=== PATIENT | male | born 1965 | race Caucasian/White ===

== ENCOUNTER 2020-04-05 00:04 | Inpatient (IN) | payer OTHER ==
--- OUTSIDE RECORDS SUMMARY | 2020-04-05 00:07 | XMS REPORT | Clinical Summary ---
:1965 Author Organization [facility] Address [address] [place] [address] Care Team Providers Name Role Phone Patricio Trevizo MD Primary Care Provider Allergies No Known Allergies Medications Medication Sig Dispensed Refills Start Date End Date Status gabapentin (NEURONTIN) Take 600 mg by 0 Active 600 mg tablet mouth 4 (four) times a day. HYDROcodone-acetaminop Take 1 tablet by 0 Active hen (NORCO) 10-325 mg mouth 2 (two) per tablet times a day. Active Problems Problem Noted Date Smoker 03/24/2019 Acute cholecystitis 02/28/2019 Obesity 07/15/2018 Postthrombotic syndrome, left iliac vein stent occlusi on 2018 07/14/2018 Last Assessment & Plan: N. Plan: Bilateral DVT study. I recommended proper skin care, weight loss, daily compression stockings, and smoking cessation. Referral given for weight loss management. Review previous CT and venograms. Acute tubular necrosis 04/23/2017 Retroperitoneal hematoma 04/23/2017 Bilateral pneumonia 04/23/2017 Normocytic normochromic anemia 04/23/2017 Hyponatremia 04/23/2017 Left lower quadrant pain 04/02/2017 Acute deep vein thrombosis (DVT) of distal vein of bot h lower extremities 03/29/2017 Overview: Added automatically from request for francisco soniya [id number] Chronic back pain Hyperlipidemia Hypertension Family History Medical History Relation Name Comments Stroke Father Diabetes Mother Stroke Mother Relation Name Status Comments Father Mother Social History Tobacco Use Types Packs/Day Years Used Date Current Every Day Smoker Cigarettes 1 30 Smokeless Tobacco: Former User Tobacco Cessation: Ready to Quit: No; Co unseling Given: Yes Alcohol Use Drinks/Week oz/Week Comments Yes 2-3 times per mo nth Sex Assigned at Date Recorded Not on file Job Start Date Occupation Industry Not on file Not on file Not on file Travel History Travel Start Travel End No recent travel history available. Last Filed Vital Signs Not on file Plan of Treatment Health Maintenance Due Date Last Done Comments COLONOSCOPY SCREENING 2017 SHINGLES VACCINES (#1) 2017 INFLUENZA VACCINE 06/18/2020 Implants Implanted Type Area Microcomputer Technician Device Shelf Model / Identifier Expiration Serial / Date Lot 16 F Sheath - [id number] Cardiac Pacing N/A: N/A MEDTR[employer] [id number] / Implanted: Qty: 1 on 04/02/2017 by Brett Lee MD at [facility] Leads or CARDIOVASCULAR / Electrodes or Accessories Matrix Cormatrix Ecm 7x15cm Pericrdl Rpr Xcell Strl - [id number] Human Tissue N/A: Vein CORMATRIX 12/18/2017 [id number] / Implanted: Qty: 1 on 04/03/2017 by Tomas Sanchez MD at [facility] Implants CARDIOVASCULAR / [id number] 24mm (Prox) X 24mm (Distal) X 82mm Total Covered, Endurant Ii Aaa Iliac Extension Stent Graft - [id number] - [id number] GRAFTS N/A: N/A MEDTRON IC 11/26/2018 [id number] / Implanted: Qty: 1 on 04/02/2017 by Brett Lee MD at [facility] CARDIOVASCULAR [id number] / [id number] Catheter Dialysis Glidepath [id number] Symmetric Tip - [id number] Implantable N/A: N/A BARD PERIPHERAL [id number] / Implanted: 04/23/2017 at [facility] (Quantity not on file) In fusion Ports VASCULAR / or Accessories Pump Infsn Synchromed Ii W/ Fltr Sut Loo p Prgrmbl Rsvr 20ml - [id number] - [id number] Neurosurgical Left: [employer] 03/15/2020 [id number] / Implanted: Qty: 1 on 11/03/2018 by Gee Hamilton M D at [facility] Implants Abdomen, NEUROMODULATION [id number] / Middle [id number] Quadrant/N on Specific 28mm (Prox) X 28mm (Distal) X 82mm Total Covered, Endurant Ii Aaa Iliac Extension Stent Graft Stent Graft N/A: N/A [employer] 06/04/20 18 [id number] / Implanted: Qty: 1 on 04/02/2017 by Brett Lee MD at [facility] [id number] / [id number] Device Endovasclr Intlgnt Drug Delv Cath 5.2fr [id number] - Lo [id number] Surgical N/A: N/A EKOS GOLD 12/05/2019 [id number] / Implanted: 04/01/2017 at [facility] (Quantity not on file) Implants ; [id number] / Expanders; [id number] Extenders; Surgical Wires Device Endovasclr Intlgnt Drug Delv Cath 5.2fr [id number] - Lo [id number] Surgical N/A: N/A EKOS GOLD 10/30/2019 [id number] / Implanted: 04/01/2017 at [facility] (Quantity not on file) Implants ; [id number] / Expanders; [id number] Extenders; Surgical Wires Patch Biosurg Selnt Fibrin Absrbl 9.5x4.8cm Tachosil - [id number] Surgical N/A: Vein [employer] 01/24/2018 [id number] / Implanted: Qty: 2 on 04/02/2017 by Tomas Sanchez MD at [facility] Implants; / Expanders; [id number] Extenders; Surgical Wires Patch Selnt Fibrin Absrbl 4.8x4.8cm Tachosil - [id number] Surgica l N/A: N/A [employer] 01/02/2018 [id number] / Implanted: 04/03/2017 at [facility] (Quantity not on file) Implants ; / Expanders; [id number] Extenders; Surgical Wires Patch Selnt Fibrin Absrbl 4.8x4.8cm Tachosil - [id number] Surgica l N/A: N/A [employer] 01/02/2018 [id number] / Implanted: 04/03/2017 at [facility] (Quantity not on file) Implants ; / Expanders; [id number] Extenders; Surgical Wires Drain Wnd Chnl 19fr 1/4in Rnd Hbls Fl-Flut W/ /4in Trocar - [id number] Surgical N/A: N/A KATI AND 05/17/2020 [id number] / Implanted: 04/03/2017 at [facility] (Quantity not on file) Im plants; [employer] / Expanders; CARE [id number] Extenders; Surgical Wires Drain Wnd Chnl 19fr 1/4in Rnd Hbls Fl-Flut W/ /4in Trocar - [id number] Surgical N/A: N/A KATI AND 05/17/2020 [id number] / Implanted: 04/03/2017 at [facility] (Quantity not on file) Im plants; [employer] / Expanders; CARE [id number] Extenders; Surgical Wires Kit Selnt Fibrin Humn [facility] Surgy 5ml Evicel - [id number] Surgica l N/A: N/A ETHICON - 09/17/2018 [id number] / Implanted: Qty: 1 on 07/04/2017 by Brett Lee MD at [facility] Implants; / Expanders; [id number] Extenders; Surgical Wires Drain Wnd Chnl 19fr 1/4in Rnd Hbls Fl-Flut W/ /4in Trocar - [id number] Surgical N/A: N/A KATI AND 12/18/2020 [id number] / Implanted: Qty: 1 on 07/04/2017 by Brett Lee MD at [facility] Implants; [employer] / Expanders; CARE [id number] Extenders; Surgical Wires Results Not on fileafter 04/05/2019 Insurance Payer Benefit Plan / Group Subscriber ID Effective Phone Addre ss Type Dates [facility] xxxxxxxxx 2018-Pres HMO/PPO CHOICE/CHOICE + ent MEDICARE MEDICARE PART A xxxxxxxxxxx 2010-[place] , [place] Medicare nt Advance Directives For more information, please contact: [phone] Type Date Recorded Patient Nursing Consultant Explanati on Advance Directives, Living 10/31/2018 7:07 AM Will and Medical Power of Field Observer
[2020-04-05] MEDS ORDERED: MORPHINE 4 MG/ML SYR ONE (01:27)
[2020-04-05] MEDS ORDERED: ONDANSETRON 4 MG/2 ML VIAL ONE ×2 (01:27→11:55)
[2020-04-05 01:52] LABS: Absolute Lymphocytes (CBC) 0.5 K/uL (0.7-4.9); Basophils % 0.3 % (0-1.3); Hematocrit 44.8 % (39.6-49.0); Lymphocytes % 4.5 % (15.3-44.8); MPV 10.9 fL (7.6-11.3); RBC Red Blood Cell Count 4.76 M/uL (4.33-5.43)
[2020-04-05 02:07] LABS: Albumin 3.4 g/dL (3.4-5.0); Bilirubin Direct 0.5 mg/dL (0-0.2); Bilirubin Total 1.4 mg/dL (0.2-1.0); Potassium 4.1 mmol/L (3.5-5.1); Protein, Total 7.5 g/dL (6.4-8.2)
[2020-04-05 03:15] LABS: Blood Morphology Comment NOT SEEN (NOT SEEN); Platelet Estimate ADEQ
--- NOTE | 2020-04-05 03:46 | EDPHYS ---
Physician Documentation [facility] Name: Wali Lang Age: 55 yrs Sex: Male : 1965 Arrival Date: 04/05/2020 Time: 00:07 Bed 7 Private MD: ED Physician Mariano Hutchison HPI: 04/05 01:21 This 55 yrs old Male presents to ER via Ambulatory with complaints of Side tw4 Pain. 01:21 The patient presents with abdominal pain in the right upper quadrant. Onset: The tw4 symptoms/episode began/occurred today. The symptoms do not radiate. Associated signs and symptoms: none. The symptoms are described as dull. Modifying factors: The symptoms are alleviated by nothing, the symptoms are aggravated by nothing. Severity of pain: At its worst the pain was moderate in the emergency department the pain is unchanged. The patient has not experienced similar symptoms in the past. Historical: - Allergies: 00:15 No Known Allergies; sg - PMHx: 00:15 Hypertension; sg - PSHx: 00:15 back surgery; sg - Immunization history:: Adult Immunizations up to date. - Social history:: Smoking status: unknown. ROS: 01:21 Constitutional: Negative for fever, chills, and weight loss, Eyes: Negative for injury, tw4 pain, redness, and discharge, Cardiovascular: Negative for chest pain, palpitations, and edema, Respiratory: Negative for shortness of breath, cough, wheezing, and pleuritic chest pain, Back: Negative for injury and pain, MS/Extremity: Negative for injury and deformity, Skin: Negative for injury, rash, and discoloration, Neuro: Negative for headache, weakness, numbness, tingling, and seizure. 01:21 Abdomen/GI: Positive for abdominal pain, abdominal distension, Negative for nausea and vomiting, nausea, vomiting, and diarrhea, nausea, vomiting, diarrhea. Exam: 01:21 Constitutional: This is a well developed, well nourished patient who is awake, alert, tw4 and in no acute distress. Eyes: Pupils equal round and reactive to light, extra-ocular motions intact. Lids and lashes normal. Conjunctiva and sclera are non-icteric and not injected. Cornea within normal limits. Periorbital areas with no swelling, redness, or edema. Chest/axilla: Normal chest wall appearance and motion. Nontender with no deformity. No lesions are appreciated. Cardiovascular: Regular rate and rhythm with a normal S1 and S2. No gallops, murmurs, or rubs. Normal PMI, no JVD. No pulse deficits. Respiratory: Lungs have equal breath sounds bilaterally, clear to auscultation and percussion. No rales, rhonchi or wheezes noted. No increased work of breathing, no retractions or nasal flaring. Back: No spinal tenderness. No costovertebral tenderness. Full range of motion. MS/ Extremity: Pulses equal, no cyanosis. Neurovascular intact. Full, normal range of motion. Neuro: Awake and alert, GCS 15, oriented to person, place, time, and situation. Cranial nerves II-XII grossly intact. Motor strength 5/5 in all extremities. Sensory grossly intact. Cerebellar exam normal. Normal gait. 01:21 Abdomen/GI: Inspection: abdomen appears normal, Bowel sounds: normal, Palpation: moderate abdominal tenderness, in all quadrants. Vital Signs: 00:51 BP 127 / 77; Pulse 104; Resp 20; Temp 99.2(TE); Pulse Ox 94% on R/A; Pain 10/10; oe 01:30 BP 137 / 71; Pulse 102; Resp 18; Pulse Ox 96% on R/A; rv 03:00 BP 102 / 59; Pulse 93; Resp 16; Pulse Ox 96% on R/A; rv 04:00 BP 139 / 86; Pulse 92; Resp 16; Temp 99; Pulse Ox 97% on R/A; rv MDM: 01:21 Data reviewed: vital signs, nurses notes. Data interpreted: Pulse oximetry: tw4 Interpretation: normal. 03:41 Patient medically screened. tw4 03:42 Differential diagnosis: appendicitis, bowel obstruction, pancreatitis, Perf. Duodenal tw4 Ulcer, Perf. Gastric Ulcer, Peritonitis. Data reviewed: lab test result(s), CBC, hepatic panel, radiologic studies, CT scan. Test interpretation: by ED physician or midlevel provider: not applicable. Counseling: I had a detailed discussion with the patient and/or guardian regarding: the historical points, exam findings, and any diagnostic results supporting the discharge/admit diagnosis, lab results, radiology results. Medication response: morphine markedly relieved the patient's pain. Symptoms have improved. Response to treatment: and as a result, I will admit patient, administer antibiotics ZOSYN. Physician consultation: Charlie Argueta MD was called at 03:40, was contacted at 03:40, regarding admission, to the medical/surgical unit. to the operating room, patient's condition, and will see patient would like medications started, ZOSYN. Admission orders: after a detailed discussion of the patient's condition and case, the admit orders are written by me. 04/05 00:49 Order name: Basic Metabolic Panel [facility] 04/05 00:49 Order name: CBC with Diff; Complete Time: 03:38 [facility] 04/05 03:38 Interpretation: WBC 11.2; LYMA 0.5; NEUT A 10.2; LYM% 4.5; ROSS% 90.9. [facility] 04/05 00:49 Order name: Hepatic Function; Complete Time: 03:38 [facility] 04/05 03:39 Interpretation: Normal except: A/G 0.8; GLOB 4.1; BILID 0.5; BILIT 1.4. [facility] 04/05 00:49 Order name: Lipase; Complete Time: 03:38 [facility] 04/05 03:40 Interpretation: Within normal limits: LIP 101. [facility] 04/05 00:50 Order name: Basic Metabolic Panel; Complete Time: 03:38 [facility] 04/05 03:39 Interpretation: Normal except: GFR 67; BUN 19; GLUC 136. [facility] 04/05 02:00 Order name: Manual Differential; Complete Time: 03:38 [facility] 04/05 03:40 Interpretation: Normal except: SEGS 84; BANDS [F] 7; LYM 5. [facility] 04/05 00:58 Order name: CT Abd/Pelvis - IV Contrast Only [facility] 04/05 03:50 Order name: CONS Pharmacy Consult [facility] 04/05 03:50 Order name: NPO [facility] 04/05 00:49 Order name: IV Saline Lock; Complete Time: 01:30 [facility] 04/05 00:49 Order name: Labs collected and sent; Complete Time: 01:31 tw4 Administered Medications: 01:30 Drug: morphine 4 mg Route: IVP; Site: left forearm; rv 04:32 Follow up: Response: No adverse reaction rv 04:32 Follow up: Response: RASS: Alert and Calm (0) rv 01:30 Drug: Zofran (Ondansetron) 4 mg Route: IVP; Site: left forearm; rv 04:32 Follow up: Response: No adverse reaction rv 04:24 Drug: Zosyn 3.375 grams Route: IVPB; Infused Over: 60 mins; Site: left forearm; rv 05:08 Follow up: IV Status: Completed infusion; IV Intake: 100ml rv 04:24 Drug: fentaNYL (PF) 50 mcg {Note: RASS 0.} Route: IVP; Site: right forearm; rv 05:08 Follow up: Response: RASS: Alert and Calm (0) rv Disposition: 04/05/20 03:45 Hospitalization ordered by Jak Rojas for Inpatient Admission. Preliminary diagnosis is ACUTE CORONARY SYNDROME. - Bed requested for Telemetry/MedSurg (Inpatient). - Status is Inpatient Admission. jb4 - Condition is Stable. - Problem is new. - Symptoms are unchanged. Signatures: Dispatcher [employer] EDMS Raghav Leung RN RN Mayra Ag RN RN Ben Goodman RN RN [facility] Mariano Hutchison MD MD [facility] Chester Fraire RN RN rv Corrections: (The following items were deleted from the chart) 04:15 03:45 Hospitalization Ordered by Jak Rojas MD for Inpatient Admission. Preliminary cg diagnosis is ACUTE CORONARY SYNDROME. Bed requested for Telemetry/MedSurg (Inpatient). Status is Inpatient Admission. Condition is Stable. Problem is new. Symptoms are unchanged. tw4 04:56 04:15 04/05/2020 03:45 Hospitalization Ordered by Jak Rojas MD for Inpatient jb4 Admission. Preliminary diagnosis is ACUTE CORONARY SYNDROME. Bed requested for Telemetry/MedSurg (Inpatient). Status is Inpatient Admission. Condition is Stable. Problem is new. Symptoms are unchanged. cg
--- NOTE | 2020-04-05 03:46 | ER ---
Nurse's Notes [facility] Name: Wali Lang Age: 55 yrs Sex: Male : 1965 Arrival Date: 04/05/2020 Time: 00:07 Bed 7 Private MD: Diagnosis: ACUTE CORONARY SYNDROME Presentation: 04/05 00:15 Acuity: FERNY 3 sg 00:15 Chief complaint: Patient states: I have this really bad pain in the right side of my sg abd and right side of my chest, its not been getting any better, the last time this happened was about three years ago, it was internal bleeding they had removed about 42 pints of blood from my stomach area. Coronavirus screen: Proceed with normal triage. Ebola Screen: Patient negative for fever greater than or equal to 101.5 degrees Fahrenheit, and additional compatible Ebola Virus Disease symptoms Patient denies exposure to infectious person. Patient denies travel to an Ebola-affected area in the 21 days before illness onset. No symptoms or risks identified at this time. Initial Sepsis Screen: Does the patient meet any 2 criteria? HR > 90 bpm. Does the patient have a suspected source of infection? Yes: Acute abdominal pain. Risk Assessment: Do you want to hurt yourself or someone else? Patient reports no desire to harm self or others. Onset of symptoms was April 02, 2020. Care prior to arrival: None. Transition of care: patient was not received from another setting of care. 00:15 Method Of Arrival: Ambulatory sg Historical: - Allergies: 00:15 No Known Allergies; sg - PMHx: 00:15 Hypertension; sg - PSHx: 00:15 back surgery; sg - Immunization history:: Adult Immunizations up to date. - Social history:: Smoking status: unknown. Screenin:39 Abuse screen: Denies threats or abuse. Denies injuries from another. Nutritional rv screening: No deficits noted. Tuberculosis screening: No symptoms or risk factors identified. Fall Risk None identified. Assessment: 01:31 General: Appears uncomfortable, Behavior is calm, cooperative. Pain:. rv 01:36 Pain: Complains of pain in RIGHT SIDE PAIN. Neuro: Level of Consciousness is awake, rv alert, obeys commands, Oriented to person, place, time, situation. Cardiovascular: Patient's skin is warm and dry. Respiratory: Airway is patent Breath sounds are clear bilaterally. Derm: Skin with poor turgor. 01:55 Reassessment: Patient and/or family updated on plan of care and expected duration. Pain rv level reassessed. Patient is alert, oriented x 3, equal unlabored respirations, skin warm/dry/pink. Vital Signs: 00:51 BP 127 / 77; Pulse 104; Resp 20; Temp 99.2(TE); Pulse Ox 94% on R/A; Pain 10/10; oe 01:30 BP 137 / 71; Pulse 102; Resp 18; Pulse Ox 96% on R/A; rv 03:00 BP 102 / 59; Pulse 93; Resp 16; Pulse Ox 96% on R/A; rv 04:00 BP 139 / 86; Pulse 92; Resp 16; Temp 99; Pulse Ox 97% on R/A; rv ED Course: 00:07 Patient arrived in ED. cl3 00:15 Triage completed. sg 00:15 Arm band placed on. sg 00:47 Mariano Hutchison MD is Attending Physician. tw4 01:06 Chester Fraire RN is Primary Nurse. rv 01:15 Inserted saline lock: 20 gauge in left forearm, using aseptic technique. rv 01:39 Patient has correct armband on for positive identification. Pulse ox on. NIBP on. rv 02:45 CT Abd/Pelvis - IV Contrast Only In Process Unspecified. EDMS 03:44 Jak Rojas MD is Hospitalizing Provider. tw4 04:31 No provider procedures requiring assistance completed. IV is patent, with fluids rv infusing freely, with good blood return, Patient admitted, IV remains in place. Administered Medications: 01:30 Drug: morphine 4 mg Route: IVP; Site: left forearm; rv 04:32 Follow up: Response: No adverse reaction rv 04:32 Follow up: Response: RASS: Alert and Calm (0) rv 01:30 Drug: Zofran (Ondansetron) 4 mg Route: IVP; Site: left forearm; rv 04:32 Follow up: Response: No adverse reaction rv 04:24 Drug: Zosyn 3.375 grams Route: IVPB; Infused Over: 60 mins; Site: left forearm; rv 05:08 Follow up: IV Status: Completed infusion; IV Intake: 100ml rv 04:24 Drug: fentaNYL (PF) 50 mcg {Note: RASS 0.} Route: IVP; Site: right forearm; rv 05:08 Follow up: Response: RASS: Alert and Calm (0) rv Intake: 05:08 IV: 100ml; Total: 100ml. rv Outcome: 03:45 Decision to Hospitalize by Provider. tw4 04:56 Patient left the ED. jb4 05:09 Admitted to Med/surg accompanied by nurse, via wheelchair, room 228, with chart, Report rv called to LOLIS DANIELS 05:09 Condition: good 05:09 Instructed on the need for admit, Demonstrated understanding of instructions. Signatures: Dispatcher [employer] EDMS Raghav Leung RN RN Ben Goodman RN RN jb4 Hardeep Brown Terrence, MD MD tw4 Chetser Fraire RN RN rv Sohan Foley cl3
[2020-04-05] MEDS ORDERED: D5.45NS W/KCL 20MEQ 1,000 ML IV ONE (04:02)
[2020-04-05] MEDS ORDERED: PIPER/TAZO/NS 3.375gm 3.375 GM/100 ML BAG ONE (04:21)
[2020-04-05] MEDS ORDERED: FENTANYL CITR 100 MCG/2 ML ONE ×3 (04:27→14:05)
[2020-04-05 05:49] VITALS: BMI 43.2
[2020-04-05] MEDS: MORPHINE 2 MG/ML SYR IV PRN ×3 (06:46→23:50)
[2020-04-05] MEDS: D5.45NS W/KCL 20MEQ 20 MEQ/1,000 ML BAG IV SCH ×2 (06:47→17:02)
[2020-04-05] MEDS: ACETAMINOPHEN 500 MG TAB PO PRN (08:47)
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
[2020-04-05] MEDS: PIPER/TAZO/NS 3.375gm 3.375 GM/100 ML BAG IVPB SCH ×2 (10:16→17:03)
--- NOTE | 2020-04-05 10:49 | RAD REPORT ---
EXAM DESCRIPTION: CT - Abdomen Pelvis W Contrast - 04/05/2020 7:07 am COMPARISON: None CLINICAL HISTORY: Abdominal pain TECHNIQUE: Multiple helical axial images were obtained through the abdomen and pelvis using intraven ous contrast. Coronal and sagittal reformatted images were obtained. All CT scans at this facility use dose modulation, iterative reconstruction, and/or weight-based dosi ng when appropriate to reduce radiation dose to as low as reasonably achievable. FINDINGS: Lung bases: Mild dependent atelectasis is noted. Liver: There is low-attenuation compatible with fatty changes. Liver appears enlarged. Gallbladder/biliary: Cholecystectomy changes are present. No significant biliary ductal dilatation. Pancreas: Unremarkable. No evidence of ductal enlargement. Spleen: Appears mildly enlarged. Adrenals: Unremarkable. Kidneys and ureters: No evidence of hydronephrosis. Normal enhancement. Bladder: Unremarkable. Pelvic organs: Unremarkable. Bowel: Appendix is enlarged measuring up to 1.6 mm in width with mildly thickened wall and intralumin al calcifications compatible with acute appendicitis. There are a few tiny foci of air near the enlar ged appendix with extensive periappendiceal inflammatory changes suggestive of appendiceal perforatio n. No evidence of bowel obstruction. Vasculature: IVC filter is present. Left iliac vein stent noted. Several small varices in the retrope ritoneum noted. Peritoneum: Trace free fluid near the appendix noted. Lymph nodes: Unremarkable. Soft tissues: There is an area of subcutaneous skin thickening in the left inguinal region which may be related to prior surgery. Neurostimulator device within the right lower abdominal wall subcutaneou s tissues demonstrated with lead entering the lumbar spinal canal. Bones: There is a serpiginous area of sclerosis involving the right femoral head suggestive of avascu lar necrosis. Degenerative changes of the lumbar spine are present. 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 IMPRESSION: 1. Findings compatible with acute appendicitis. Few tiny foci of extraluminal air and ex tensive inflammation near the appendix suggestive of appendiceal perforation. 2. 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 3. Hepatomegaly and hepatic steatosis. THIS REPORT CONTAINS FINDINGS THAT MAY BE CRITICAL TO PATIENT CARE: The findings were verbally discu ssed via telephone conference with Dr. Hutchison by Dr. Becerra at 0331 hours central time on April 05, 2020. The results were acknowledged and understood. Electronically signed by: Talon Becerra MD 04/05/2020 3:40 AM CDT Due to temporary technical issues with the PACS/Fluency reporting system, reports are being signed by the in house radiologist as a courtesy to ensure prompt reporting. The interpreting radiologist is f ully responsible for the content of the report.
[2020-04-05] MEDS ORDERED: CELECOXIB 100 MG CAPSULE PO ONE (11:10)
[2020-04-05] MEDS ORDERED: Ringers Lactate 1,000 ML IV ONE (11:37)
[2020-04-05] MEDS ORDERED: propofoL 200 MG/20 ML VIAL IV ONE (11:54)
[2020-04-05] MEDS ORDERED: KETOROLAC 30 MG/ML INJ ONE (11:55)
[2020-04-05] MEDS ORDERED: MIDAZOLAM HCL 2 MG/2 ML INJ ONE (11:55)
[2020-04-05] MEDS ORDERED: LIDOCAINE 2% MPF 5 ML VIAL ONE (11:55)
[2020-04-05] MEDS ORDERED: ROCURONIUM 50 MG/5 ML VIAL IV ONE (11:58)
[2020-04-05] MEDS ORDERED: SUCCINYLCHOLINE 20 MG/ML (10 ML) IV ONE (12:06)
[2020-04-05] MEDS: BUPIVACA 0.25%/EPI 0.0005%/PF 30 ML VIAL ONE ×2 (12:24→12:53)
[2020-04-05] MEDS ORDERED: dexAMETHasone 4 MG/ML VIAL ONE (14:02)
[2020-04-05] MEDS ORDERED: NEOSTIGMINE 1 MG/ML -5 ML ONE (14:02)
[2020-04-05] MEDS ORDERED: GLYCOPYRROLATE 0.2 MG/ML SYR ONE (14:02)
--- NOTE | 2020-04-05 14:12 | P.OP ---
Preoperative diagnosis: Perforated Appendicitis Postoperative diagnosis: Perforated Appendicitis Primary procedure: Laparoscopic Appendectomy Anesthesia: GETA + Local Estimated blood loss: <10cc Specimen: Appendix, inflammed epiploic appendage Findings: gross perforation, feculent peritonitis, necrosis to proximal appendix Complications: None Drain(s): Other (mm flat BRITTNI) Implants: Surgicel hemostatic matrix Transferred to: Recovery Room Condition: Good
[2020-04-05] MEDS ORDERED: HYDROCODONE/APAP 7.5/325 MG TAB PO PRN (14:39)
[2020-04-05] MEDS: INSULIN -REGULAR HUMAN 50 UNIT/0.5 ML ML SQ SCH ×2 (16:30→20:38)
[2020-04-05] MEDS: GABAPENTIN 300 MG CAP PO SCH (20:37)
--- NOTE | 2020-04-05 20:39 | OP ---
Date of Procedure: 04/05/2020 Surgeon: Charlie Argueta MD, Preoperative Diagnosis: Perforated appendicitis. Postoperative Diagnosis: Perforated appendicitis. Primary Procedure: Laparoscopic appendectomy. Secondary Procedure: Laparoscopic adhesiolysis. Anesthesia: General endotracheal. Specimens: Appendix and an inflamed epiploic appendage. Estimated Blood Loss: Less than 10 mL. Findings: 1.Gross perforation at the proximal aspect of the appendix near the confluence of the cecum. 2.Feculent peritonitis in the right upper and right lower quadrant with pus and stool material consi stent with ruptured appendicitis and spillage of appendicolith and fecal material. 3.Patient had increased oozing from all cut surfaces as he is currently on anticoagulation due to hi s previous vascular intervention. Complications: None. Drains: A 7 mm flat BRITTNI drain placed in the right pericolic gutter. Implants: Surgicel hemostatic matrix in the right lower quadrant. Patient transferred to [facility] r o in good condition. Procedure In Detail: After informed consent was obtained, patient was brought to the operating room, prepped and draped in the usual sterile fashion. After adequate anesthesia, a supraumbilical area w as anesthetized with 0.25% Marcaine, sharply incised a 5 mm trocar was introduced in the abdomen with out evidence of complication. Insufflation was obtained to 15 mmHg at this time. There was no injur y upon entry to the abdomen to any vital structures. There were significant intraabdominal omental a dhesions to the anterior surface of the abdominal wall, however, no vital structures were entered dur ing the entry of the periumbilical trocar site. Two additional trocars were chosen, one in the right lower quadrant, 1 in the suprapubic position. These were both similar, anesthetized sharply incised , and 5 mm trocars were introduced in the abdomen without evidence of complication under direct visua lization, avoiding the patient's morphine pain pump in the right lower quadrant. The umbilical troca r was then up-sized to a 12 mm under direct visualization without complication. The adhesions in the periumbilical area were taken down using LigaSure hemostatic device without evidence of complication . Patient was then positioned head down, right side up position and ratchet grasper used to follow t he patient's tenia coli down to the confluence and noted to find that there was evidence of gross fec ulent peritonitis in the right lower quadrant along with purulent fluid evident in this area consiste nt with abscess. It extended from the right pericolic gutter all the way up to the perihepatic space . This was suctioned out in its entirety, irrigated and suctioned out once again until completely cl ear. Attention was then turned back to the appendix which was quite difficult to discern at this poi nt. Careful dissection following the tenia from the base of the cecum appreciated that the appendix curled upward in a cranial direction on the lateral aspect of the colon in close adherence to the col on and structures. In addition there were significant inflammatory changes requiring careful dissect ion along the pericolic gutter to evacuate all infected fluids. After this was performed, a mesoappe ndiceal window was created and an Endo MABEL 35 blue load was fired across the confluence of the append iceal base with the cecum. The tissue was approximated at this point. The mesoappendix was taken do wn using the LigaSure device and the appendix was then placed in the EndoCatch bag, removed the umbil ical trocar, and sent off for pathologic examination. The area was copiously irrigated multiple time s and completely clear. Some additional hemostatic maneuvers were required near the mesoappendix as it was grossly inflamed and quite friable. During the handling there was some continued oozing from this area. The LigaSure was used to control this predominantly and the area was copiously irrigated. When no additional bleeding was encountered, a piece of Surgicel was placed into this area as the p atient has a preexisting condition requiring anticoagulation and he currently took his anticoagulatio n as of today. Therefore, I left the piece of Surgicel intact in the right lower quadrant at the mes oappendix location. I then brought in a 7 mm flat BRITTNI drain as we had no 10 mm drains available. Thi s is the largest flat BRITTNI we had placed. I placed in the right paracolic gutter along the surgical ma rgin. I irrigated the area copiously multiple times and completely clear, irrigated the pelvis and s uctioned it out dry. No additional fluid collections were encountered. The drain was then brought o ut through the right lower quadrant incision through the trocar and it was secured to the skin after removing the trocar. The patient was then positioned in neutral position. Under desufflation I obse rved no additional bleeding in the right lower quadrant. After placing the patient down to 5 mm of i ntraabdominal pressure, and inspecting the right lower quadrant, there was no additional bleeding nicole reciated and no leakage from the staple line. I then turned attention back to the umbilical site. I removed the umbilical trocar and closed the umbilical trocar site with a Gopal-Eladia suture pass er in an interrupted fashion with several sutures with good approximation of tissues. The abdomen wa s completely desufflated under direct visualization without evidence of complication. All trocars we re removed. All skin incisions were copiously irrigated and closed with interrupted sraa. Brennen fuentes tolerated the procedure well without evidence of complication and was transferred to PACU in good c ondition. All counts were correct at the end of the case. FRANSICO/LAYLA Voice ID: [id number] Report ID: [id number]
[2020-04-05] MEDS ORDERED: HOME MED 1 EA UNK (Gabapentin [Gabapentin] 1 TAB) PO SCH (21:00)
[2020-04-06] MEDS: PIPER/TAZO/NS 3.375gm 3.375 GM/100 ML BAG IVPB SCH ×3 (00:47→16:18)
[2020-04-06] MEDS: D5.45NS W/KCL 20MEQ 20 MEQ/1,000 ML BAG IV SCH ×2 (00:47→07:00)
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
[2020-04-06 04:44] LABS: Absolute Lymphocytes (CBC) 0.6 K/uL (0.7-4.9); Basophils % 0.9 % (0-1.3); Hematocrit 41.7 % (39.6-49.0); Lymphocytes % 4.7 % (15.3-44.8); MPV 10.3 fL (7.6-11.3); RBC Red Blood Cell Count 4.41 M/uL (4.33-5.43)
[2020-04-06 04:55] LABS: Magnesium 2.3 mg/dL (1.8-2.4); Phosphorus 1.9 mg/dL (2.5-4.9); Potassium 4.5 mmol/L (3.5-5.1)
[2020-04-06] MEDS: INSULIN -REGULAR HUMAN 50 UNIT/0.5 ML ML SQ SCH ×4 (07:30→21:00)
[2020-04-06] MEDS ORDERED: RIVAROXABAN 20 MG TABLET PO SCH (09:00)
[2020-04-06] MEDS: NA CHLORIDE 0.9% 1,000 ML IV SCH ×2 (09:30→22:37)
[2020-04-06] MEDS: GABAPENTIN 300 MG CAP PO SCH ×3 (09:34→20:26)
[2020-04-06] MEDS: ACETAMINOPHEN 500 MG TAB PO PRN (10:41)
[2020-04-06] MEDS: POTASS/SODIUM PHOSPHATE 1 PKT POWD.PACK PO SCH ×3 (12:49→15:33)
--- NOTE | 2020-04-06 15:28 | P.PN ---
Subjective Date of Service: 04/06/20 Primary Care Provider: none, Multiple specialist at [facility] Chief Complaint: Right lower abdominal pain Subjective: Improving, Doing well (Patient has done well post operatively.) Physical Examination - Vital Signs Temperature: 98.5 F Blood Pressure: 123/60 Pulse: 73 Respirations: 20 Pulse Ox (%): 96 - Physical Exam General: Alert, In no apparent distress, Oriented x3, Cooperative HEENT: Atraumatic Neck: Supple Respiratory: Clear to auscultation bilaterally, Normal air movement Cardiovascular: Normal pulses, Regular rate/rhythm Gastrointestinal: Normal bowel sounds, Soft and benign, Other (No significant pain. Postsurgical changes noted.) Neurological: Normal speech, Normal strength at 5/5 x4 extr, Normal tone, Normal affect - Studies Medications List Reviewed: Yes Assessment & Plan Discharge Plan: Home Plan to discharge in: 48 Hours Physician Review Additional Text: Impression: Right lower quadrant abdominal pain secondary to acute appendicitis with perforation status post laparoscopic appendectomy History of DVT/pulmonary embolism on chronic anti coagulation therapy with IVC filter in place Chronic pain with significant degenerative disc and joint disease with pain pump Obesity, BMI 43.3 Plan: Right lower quadrant abdominal pain secondary to acute appendicitis with per foration status post laparoscopic appendectomy: Patient did well post operatively. Case discussed with surgery. Will continue incentive spirometer. Encourage ambulation. Will start with clear liquids and adjust accordingly. Anticipate discharge in the next 48 hr with clinical improvement. Continue to follow along with surgery. History of DVT/pulmonary embolism on chronic anti coagulation therapy with IVC filter in place: Overall stable. Will restart Xarelto today. Chronic pain with significant degenerative disc and joint disease with pain pump: Continue with pain medication. Obesity, BMI 43.3: Will address lifestyle modification education. Time Spent Managing Pts Care (In Minutes): 55
--- NOTE | 2020-04-06 16:20 | P.PN ---
Subjective Date of Service: 04/06/20 Primary Care Provider: none, Multiple specialist at [facility] Chief Complaint: Right lower abdominal pain Subjective: Improving (Patient feels much better, tolerating clears, no bowel function.) Physical Examination - Vital Signs Temperature: 98.5 F Blood Pressure: 123/60 Pulse: 73 Respirations: 20 Pulse Ox (%): 96 - Physical Exam General: Alert, In no apparent distress, Cooperative HEENT: Mucous membr. moist/pink Respiratory: Diminished Cardiovascular: Regular rate/rhythm Gastrointestinal: Other (soft, mild appropriate TTP, ND, BRITTNI serosanguanous, incisions clean and dry) - Studies Medications List Reviewed: Yes Assessment And Plan - Current Problems (Diagnosis) (1) Acute perforated appendicitis Current Visit: Yes Status: Acute Plan: 55 year old man with perforated appendicitis s/p laparoscopic appendectomy on 04/06/2020 - pain well controlled with current regime - advance diet slowly - anticipate ileus - serial exams - monitor BRITTNI - Serial labs - leukocytosis improving - ambulate with assist - start anticoagulation today - incentive spirometry (2) Aneurysm artery, iliac common Current Visit: Yes Status: Acute (3) Pulmonary embolism on long-term anticoagulation therapy Current Visit: Yes Status: Acute (4) Deep venous thrombosis (DVT) of both peroneal veins Current Visit: Yes Status: Acute (5) Chronic pain Current Visit: Yes Status: Acute (6) Back pain Current Visit: Yes Status: Acute Physician Review Additional Text: Impression: Right lower quadrant abdominal pain secondary to acute appendicitis with perforation status post laparoscopic appendectomy History of DVT/pulmonary embolism on chronic anti coagulation therapy with IVC filter in place Chronic pain with significant degenerative disc and joint disease with pain pump Obesity, BMI 43.3 Plan: Right lower quadrant abdominal pain secondary to acute appendicitis with perforation status post laparoscopic appendectomy: Patient did well post operatively. Case discussed with surgery. Will continue incentive spirometer. Encourage ambulation. Will start with clear liquids and adjust accordingly. Anticipate discharge in the next 48 hr with clinical improvement. Continue to follow along with surgery. History of DVT/pulmonary embolism on chronic anti coagulation therapy with IVC filter in place: Overall stable. Will restart Xarelto today. Chronic pain with significant degenerative disc and joint disease with pain pump: Continue with pain medication. Obesity, BMI 43.3: Will address lifestyle modification education.
[2020-04-06] MEDS: ENOXAPARIN 40 MG/0.4 ML SQ SCH (18:42)
[2020-04-06] MEDS: NICOTINE 21 MG/PAT TD SCH (20:25)
[2020-04-07] MEDS: PIPER/TAZO/NS 3.375gm 3.375 GM/100 ML BAG IVPB SCH ×3 (00:58→16:25)
[2020-04-07 04:33] LABS: Absolute Lymphocytes (CBC) 0.9 K/uL (0.7-4.9); Basophils % 0.2 % (0-1.3); Hematocrit 38.4 % (39.6-49.0); Lymphocytes % 8.5 % (15.3-44.8); MPV 10.7 fL (7.6-11.3); RBC Red Blood Cell Count 4.13 M/uL (4.33-5.43)
[2020-04-07 04:49] LABS: Magnesium 2.1 mg/dL (1.8-2.4); Phosphorus 2.5 mg/dL (2.5-4.9); Potassium 4.1 mmol/L (3.5-5.1)
[2020-04-07] MEDS: NA CHLORIDE 0.9% 1,000 ML IV SCH ×2 (07:26→20:11)
[2020-04-07] MEDS: INSULIN -REGULAR HUMAN 50 UNIT/0.5 ML ML SQ SCH ×4 (07:30→21:00)
[2020-04-07] MEDS: GABAPENTIN 300 MG CAP PO SCH ×3 (09:03→20:10)
[2020-04-07] MEDS: ENOXAPARIN 40 MG/0.4 ML SQ SCH (09:03)
[2020-04-07] MEDS: NICOTINE 21 MG/PAT TD SCH (09:08)
--- NOTE | 2020-04-07 11:23 | P.PN ---
Subjective Date of Service: 04/07/20 Primary Care Provider: none, Multiple specialist at [facility] Chief Complaint: Right lower abdominal pain Subjective: Improving, Doing well (Patient denies any abdominal pain. No significant nausea vomiting. Patient tolerating GI soft diet.) Physical Examination - Vital Signs Temperature: 97.6 F Blood Pressure: 128/68 Pulse: 63 Respirations: 20 Pulse Ox (%): 97 - Physical Exam General: Alert, In no apparent distress, Oriented x3, Cooperative HEENT: Atraumatic Neck: Supple Respiratory: Clear to auscultation bilaterally, Normal air movement Cardiovascular: Normal pulses, Regular rate/rhythm Gastrointestinal: Normal bowel sounds, Soft and benign, Non-distended, No tenderness, No masses, No rebound, No guarding, Other (postsurgical changes noted) Musculoskeletal: No tenderness, No warmth Neurological: Normal speech, Normal strength at 5/5 x4 extr, Normal tone, Normal affect - Studies Medications List Reviewed: Yes Assessment & Plan Discharge Plan: Home Plan to discharge in: 48 Hours Physician Review Additional Text: Impression: Right lower quadrant abdominal pain secondary to acute appendicitis with perforation status post laparoscopic appendectomy History of DVT/pulmonary embolism on chronic anti coagulation therapy with IVC filter in place Chronic pain with significant degenerative disc and joint disease with pain pump Obesity, BMI 43.3 Plan: Right lower quadrant abdominal pain secondary to acute appendicitis with perforation status post laparoscopic appendectomy: Patient has done well post operatively. Patient tolerating GI soft diet. Encourage ambulation. Encourage incentive spirometer. Will discuss with surgery on discharge plan of care. If the patient continues to perform an do well, will consider discharge in the next 48 hr. History of DVT/pulmonary embolism on chronic anti coagulation therapy with IVC filter in place: Overall stable. Case discussed with surgery yesterday. Surgery wanted to hold off on restarting Xarelto. Therefore will continue with Lovenox 40 mg daily for DVT prophylaxis. Chronic pain with significant degenerative disc and joint disease with pain pump: Continue with pain medication. Obesity, BMI 43.3: Will address lifestyle modification education. Time Spent Managing Pts Care (In Minutes): 55
--- NOTE | 2020-04-07 15:19 | P.PN ---
Subjective Date of Service: 04/07/20 Primary Care Provider: none, Multiple specialist at [facility] Chief Complaint: Right lower abdominal pain Subjective: Improving (Patient pain much improved, ambulatory, tolerating diet, +BM) Physical Examination - Vital Signs Temperature: 98.8 F Blood Pressure: 115/74 Pulse: 79 Respirations: 20 Pulse Ox (%): 97 - Physical Exam General: Alert, In no apparent distress, Cooperative HEENT: Mucous membr. moist/pink Respiratory: Clear to auscultation bilaterally, Normal air movement Cardiovascular: Regular rate/rhythm Gastrointestinal: Other (soft, obese, incisions clean and dry, BRITTNI serosanguanous, no infection, appropriate TTP, sara in place) - Studies Medications List Reviewed: Yes Assessment And Plan - Current Problems (Diagnosis) (1) Acute perforated appendicitis Current Visit: Yes Status: Acute Plan: 55 year old man with perforated appendicitis s/p laparoscopic appendectomy on 04/06/2020 - pain well controlled with current regime - advance diet - serial exams - monitor BRITTNI - likely remove in AM - Serial labs - leukocytosis improving - ambulate with assist - start anticoagulation today - incentive spirometry - ok to transition to PO anticoagulation, - will nevin PETERSEN home in AM on antibiotic (2) Aneurysm artery, iliac common Current Visit: Yes Status: Acute (3) Pulmonary embolism on long-term anticoagulation therapy Current Visit: Yes Status: Acute (4) Deep venous thrombosis (DVT) of both peroneal veins Current Visit: Yes Status: Acute (5) Chronic pain Current Visit: Yes Status: Acute (6) Back pain Current Visit: Yes Status: Acute Physician Review Additional Text: Impression: Right lower quadrant abdominal pain secondary to acute appendicitis with perforation status post laparoscopic appendectomy History of DVT/pulmonary embolism on chronic anti coagulation therapy with IVC filter in place Chronic pain with significant degenerative disc and joint disease with pain pump Obesity, BMI 43.3 Plan: Right lower quadrant abdominal pain secondary to acute appendicitis with perforation status post laparoscopic appendectomy: Patient has done well post operatively. Patient tolerating GI soft diet. Encourage ambulation. Encourage incentive spirometer. Will discuss with surgery on discharge plan of care. If the patient continues to perform an do well, will consider discharge in the next 48 hr. History of DVT/pulmonary embolism on chronic anti coagulation therapy with IVC filter in place: Overall stable. Case discussed with surgery yesterday. Jere soniya wanted to hold off on restarting Xarelto. Therefore will continue with Lovenox 40 mg daily for DVT prophylaxis. Chronic pain with significant degenerative disc and joint disease with pain pump: Continue with pain medication. Obesity, BMI 43.3: Will address lifestyle modification education.
[2020-04-08] MEDS: PIPER/TAZO/NS 3.375gm 3.375 GM/100 ML BAG IVPB SCH ×2 (00:10→08:32)
[2020-04-08 06:11] LABS: Absolute Lymphocytes (CBC) 0.9 K/uL (0.7-4.9); Basophils % 0.5 % (0-1.3); Hematocrit 36.6 % (39.6-49.0); Lymphocytes % 12.5 % (15.3-44.8); MPV 10.8 fL (7.6-11.3); RBC Red Blood Cell Count 3.94 M/uL (4.33-5.43)
[2020-04-08 06:28] LABS: Magnesium 2.1 mg/dL (1.8-2.4); Phosphorus 3.6 mg/dL (2.5-4.9); Potassium 3.9 mmol/L (3.5-5.1)
[2020-04-08] MEDS: INSULIN -REGULAR HUMAN 50 UNIT/0.5 ML ML SQ SCH ×2 (07:30→11:30)
--- NOTE | 2020-04-08 07:54 | P.DS ---
Admission Date: 04/05/20 Discharge Date: 04/08/20 Primary Care Provider: none, Multiple specialist at [facility] Disposition: ROUTINE DISCHARGE Discharge Condition: GOOD Reason for Admission: Right lower abdominal pain Consultations: Hosptialist - Dr. 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 Hospital Course: Patient admitted, taken to OR emergently for laparoscopic appendectomy where he was noted to have perforated appendicits with feculent peritonitis localized to RIGHT colic gutter area, with abscess, it was drained, appendectomy performed and BRITTNI drain left in place, he did well post op, tolerated diet, ambulatory, maintained on anticoagulation, leukocytosis resolved, drain clear, and pain well controlled. Vital Signs/Physical Exam: Temp Pulse Resp BP Pulse Ox 97.8 F 70 20 137/75 98 04/08/20 04:00 04/08/20 04:00 04/08/20 04:00 04/08/20 04:00 04/08/20 04:00 General: Alert, In no apparent distress, Cooperative HEENT: Mucous membr. moist/pink Respiratory: Diminished (chronic smoker) Cardiovascular: Regular rate/rhythm Gastrointestinal: Other (soft, mild appropriate TTP, BRITTNI removed, site has minimal serous fluid s/p removal this AM. sara in place) Integumentary: No rashes, No breakdown Neurological: Normal gait, Normal speech Laboratory Data at Discharge: WBC 7.5 K/uL (4.3-10.9) D 04/08/20 05:49 Hgb 12.7 g/dL (13.6-17.9) L 04/08/20 05:49 Hct 36.6 % (39.6-49.0) L 04/08/20 05:49 Plt Count 126 K/uL (152-406) L 04/08/20 05:49 Sodium 141 mmol/L (136-145) 04/08/20 05:49 Potassium 3.9 mmol/L (3.5-5.1) 04/08/20 05:49 BUN 20 mg/dL (7-18) H 04/08/20 05:49 Creatinine 1.05 mg/dL (0.55-1.3) 04/08/20 05:49 Glucose 91 mg/dL (74-106) 04/08/20 05:49 Phosphorus 3.6 mg/dL (2.5-4.9) 04/08/20 05:49 Magnesium 2.1 mg/dL (1.8-2.4) 04/08/20 05:49 Total Bilirubin 1.4 mg/dL (0.2-1.0) H 04/05/20 01:26 AST 26 U/L (15-37) 04/05/20 01:26 ALT 45 U/L (12-78) 04/05/20 01:26 Alkaline Phosphatase 117 U/L (45-117) 04/05/20 01:26 Lipase 101 U/L (73-393) 04/05/20 01:26 Home Medications: Gabapentin 1 tab PO TID 04/05/20 Rivaroxaban [Xarelto*] 20 mg PO DAILY 04/05/20 Patient Discharge Instructions: - restart all your home meds including blood thinners. - will have antibiotics Rx at home Diet: Regular Activity: No lifting more than 10 lbs Followup: Charlie Argueta MD [ACTIVE - CAN ADMIT] -
[2020-04-08] MEDS: ENOXAPARIN 40 MG/0.4 ML SQ SCH (08:29)
[2020-04-08] MEDS: NICOTINE 21 MG/PAT TD SCH (08:30)
[2020-04-08] MEDS: GABAPENTIN 300 MG CAP PO SCH ×2 (08:30→12:21)
[2020-04-08 08:51] VITALS: O2SAT 93
[2020-04-08] MEDS ORDERED: POTASSIUM CL SA 10 MEQ TAB PO ONE (09:00)
[2020-04-08 09:17] VITALS: BP 128/69; TEMP 96.8
--- NOTE | 2020-04-08 11:53 | P.PN ---
Subjective Date of Service: 04/08/20 Primary Care Provider: none, Multiple specialist at [facility] Chief Complaint: Right lower abdominal pain Subjective: Improving, Doing well Physical Examination - Vital Signs Temperature: 96.8 F Blood Pressure: 128/69 Pulse: 75 Respirations: 18 Pulse Ox (%): 94 - Physical Exam General: Alert, In no apparent distress, Oriented x3, Cooperative HEENT: Atraumatic Neck: Supple Respiratory: Clear to auscultation bilaterally, Normal air movement Cardiovascular: Normal pulses, Regular rate/rhythm Gastrointestinal: Normal bowel sounds, Soft and benign, Non-distended, No tenderness, No masses, No rebound, No guarding Musculoskeletal: No erythema, No tenderness, No warmth Integumentary: No tenderness/swelling, No erythema, No warmth, No cyanosis Neurological: Normal speech, Normal strength at 5/5 x4 extr, Normal tone, Normal affect - Studies Medications List Reviewed: Yes Assessment & Plan Discharge Plan: Home Plan to discharge in: 24 Hours Physician Review Additional Text: Impression: Right lower quadrant abdominal pain secondary to acute appendicitis with perforation status post laparoscopic appendectomy History of DVT/pulmonary embolism on chronic anti coagulation therapy with IVC filter in place Chronic pain with significant degenerative disc and joint disease with pain pump Obesity, BMI 43.3 Plan: Right lower quadrant abdominal pain secondary to acute appendicitis with perforation status post laparoscopic appendectomy: Patient has done well. Case discussed with surgery. Patient will go home today. Will continue with Levaquin 500 mg daily and Flagyl 500 mg 3 times a day for 5 more days. A prescription for tramadol will be provided. Patient will follow up with surgery within 1 week to follow up this hospitalization. Postop care will be provided. History of DVT/pulmonary embolism on chronic anti coagulation therapy with IVC filter in place: Patient will restart Xarelto and continue it as an outpatient. Chronic pain with significant degenerative disc and joint disease with pain pump: Continue with pain medication. Obesity, BMI 43.3: Will address lifestyle modification education. Time Spent Managing Pts Care (In Minutes): 55
[2020-04-08] MEDS: NA CHLORIDE 0.9% 1,000 ML IV SCH ×2 (12:22)
== END 2020-04-08 12:51 | disposition home or self-care (01) | DRG 339 ==
LOC: ER 00:04 → ERHOLD 04:02 → 2ND 04:51
PROVIDERS: ADMIT Surgery; ATTEND Surgery
PROC: 0W9G30Z Drainage of Peritoneal Cavity with Drainage Device, Percutaneous Approach (ICD-10-PCS; 2020-04-05)
PROC: 0DTJ4ZZ Resection of Appendix, Percutaneous Endoscopic Approach (ICD-10-PCS; principal; 2020-04-05 13:15)
DX: K35.33 Acute appendicitis with perforation, localized peritonitis, and gangrene, with abscess (principal); Z68.41 Body mass index [BMI] 40.0-44.9, adult; F17.200 Nicotine dependence, unspecified, uncomplicated; M19.90 Unspecified osteoarthritis, unspecified site; G89.29 Other chronic pain; E66.9 Obesity, unspecified; I10 Essential (primary) hypertension; I72.3 Aneurysm of iliac artery; Z97.8 Presence of other specified devices; Z86.718 Personal history of other venous thrombosis and embolism; Z86.711 Personal history of pulmonary embolism; Z98.1 Arthrodesis status; Z79.01 Long term (current) use of anticoagulants
CPT/HCPCS: 36415; 74177; 80048; 80076; 82947; 83690; 83735; 84100; 85025; 86850; 86900; 86901; 88304; 94760; 97116; 97161; 99285; J0330; J1650; J2250; J2270; J2405; J2543; J2704; J2710; J3010; J7030; J7120; Q9967

== ENCOUNTER 2023-04-15 15:27 | Emergency (ER) | payer OTHER ==
[2023-04-15] MEDS ORDERED: NA CHLORIDE 0.9% 1,000 ML ONE (16:03)
[2023-04-15 16:20] LABS: Absolute Lymphocytes (CBC) 1.1 K/uL (0.7-4.9); Hematocrit 36.3 % (39.6-49.0); Lymphocytes % 23.2 % (15.3-44.8); MCV 78.9 fL (80-100); MPV 10.1 fL (7.6-11.3)
[2023-04-15] MEDS ORDERED: INSULIN -REGULAR HUMAN 50 UNIT/0.5 ML ML ONE (16:35)
--- OUTSIDE RECORDS SUMMARY | 2023-04-15 16:40 | XMS REPORT | Continuity of Care Document ---
:1965 Author Organization [facility] t Address [address] [facility] [place] [address] Care Team Providers Name Role Phone Navin Apodaca MD Primary Care Physician DR MIKIE CHOI([place]) Attending Clinician Unavailable Trudi FUNES, Amanda Al Attending Clinician [phone] Albert Hernandez MD Attending Clinician Main Alejandra MD Attending Clinician Padmini Sal RN Attending Clinician Unavailable Vinod Barr MD Attending Clinician Carlota Shetty MA Attending Clinician Unavailable Bradley PORRAS, Sindy Hargrove Attending Clinician [phone] Salma Ayers RN Attending Clinician Unavailable NAVIN APODACA Attending Clinician Unavailable MD NAVIN APODACA Attending Clinician Unavailable DEXTER MARTINEZ Attending Clinician Unavailable FINA CALDERON Attending Clinician Unavailable DONALD MCKEON Attending Clinician Unavailable MD WILIAM TRUONG Attending Clinician Unavailable WILIAM TRUONG Attending Clinician Unavailable BRANDEN JAMA Attending Clinician Unavailable Doctor Unassigned, [place] Attending Clinician Unavailable Jd Manrique PT, [place] Attending Clinician Unavailable Cuba Townsend MD Attending Clinician CUBA TOWNSEND Attending Clinician Unavailable Dee Bedolla Attending Clinician Unavailable ARTIE MAE Attending Clinician Unavailable DR KERRY SOTO Attending Clinician Unavailable DK CHATTERJEE Attending Clinician Unavailable DR MIKIE CHOI([place]) Admitting Clinician Unavailable NAVIN APODACA Admitting Clinician Unavailable MD SINDY GUERRA Admitting Clinician UnavailMD NAVIN Woo Admitting Clinician Unavailable DONALD MCKEON Admitting Clinician Unavailable MD WILIAM TRUONG Admitting Clinician Unavailable DR KERRY SOTO Admitting Clinician Unavailable Payers Payer Name Policy Type Policy Number Effective Date Expiration Date S jenny 0345 [id number] 1957 00:00:00 0731 [id number] 1959 00:00:00 [facility] [id number] 2020 PPO 00:00:00 Problems Condition Condition Condition Status Onset Resolution Last Treating Co mments Source Name Details Category Date Date Treatment Clinician Date 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 Continue non-op managemen t. Continue compressi on therapy. Reassuran ce given. Will order CT pelvis for residual seroma/he matoma. 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 Added automatic ally from request for surgery [id number] Atrial Atrial Disease Active Overview: Method i flutter flutter 07-[address] 00:00: g of this Hospita 00 note l might be different from the original. Added automatic ally from request for surgery [id number] Infected Infected Disease Active Overview: Me thodi prosthetic prosthetic 06-[address] vascular vascular 00:00: g of this Hos adelso graft, graft, 00 note l sequela sequela might be different from the original. Added automatic ally from request for surgery [id number] Cellulitis Cellulitis Disease Active M ethodi 8-11 st 00:00: Hospita 00 l PVD PVD Disease Active Methodi (periphera (periphera 3-11 st l vascular l vascular 00:00: Ho spita disease) disease) 00 l Venous Venous Disease Active Methodi (periphera (periphera 3-11 st l) l) 00:00: Hospita insufficie insufficie 00 l ncy ncy Preop Preop Disease Active 2019-11 Methodi cardiovasc cardiovasc 2-04 st ular exam ular exam 00:00: Hosp evan 00 l Smoker Smoker Disease Active Methodi 5-07 st 00:00: Hospita 00 l Acute Acute Disease Active Methodi cholecysti cholecysti 4-13 st tis tis 00:00: Hospita 00 l Obesity Obesity Disease Active Methodi 828 st 00:00: Hospita 00 l 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 N.Plan: Bilateral DVT study. I recommend ed proper skin care, weight loss, daily compressi on stockings , and smoking cessation . Referral given for weight loss managemen t. Review previous CT and venograms . Acute Acute Disease Active Methodi tubular tubular 04-23 st necrosis necrosis 00:00: Hospit a 00 l Retroperit Retroperit Disease Active M ethodi perez perez 04-23 st hematoma hematoma 00:00: Hospit a 00 l Bilateral Bilateral Disease Active Met hodi pneumonia pneumonia 04-23 st 00:00: Hospita 00 l Normocytic Normocytic Disease Active M ethodi normochrom normochrom 04-23 st ic anemia ic anemia 00:00: Hosp evan 00 l Hyponatrem Hyponatrem Disease Active M ethodi ia ia 04-23 st 00:00: Hospita 00 l Left lower Left lower Disease Active M ethodi quadrant quadrant 5-16 st pain pain 00:00: Hospita 00 l Acute deep Acute deep Disease Active Overview : Methodi vein vein 5-[address] thrombosis thrombosis 00:00: g of this Hospita (DVT) of (DVT) of 00 note l distal distal might be vein of vein of different both lower both lower from the extremitie extremitie original. s s Added automatic ally from request for surgery [id number] Chronic Chronic Disease Recurre Method i back pain back pain nce st Hospita l Hyperlipid Hyperlipid Disease Recurre Methodi emia emia nce st Hospita l Hypertensi Hypertensi Disease Recurre Methodi on on nce st Hospita l Allergies, Adverse Reactions, Alerts Allergy Allergy Status Severity Reaction(s) Onset Inactive Treating Comm ents Source Name Type Date Date Clinician Adhesive Propensi Active Rash 2019-11 Latex Method i Tape-Kelsea ty to 0-[address] icones adverse 00:00: Hospita reaction 00 l s to drug No Known DA Active [facility] Allergie 7 [place] s 00:00: Orthope 00 dic Hospita l No Known [facility] NO KNOWN Drug Active [facility] ALLERG Class ity of S [facility] Latex DA Active Unknown skin moeller [facility] No Known DA Active [facility] Allergie Diamondhead s Family History Family Member Diagnosis Comments Start Date Stop Date Source Natural father Stroke [facility] Natural mother Diabetes [facility] Natural mother Stroke [facility] Social History Social Habit Start Date Stop Date Quantity Comments Source History of tobacco Smokes tobacco Me [facility]odist use daily Hospital Gender identity [facility] Sexual orientation [facility] Hospital Alcohol intake 2022-08-07 2022-08-07 Ex-drinker Gnosticist 00:00:00 00:00:00 (finding) Hospital History of Social 2022-08-07 2022-08-[address] function 00:00:00 00:00:00 Hospital Cigarettes smoked 2022-07-19 2022-07-19 [facility] current (pack per 00:00:00 00:00:00 Hospita l day) - Reported Cigarette 2022-07-19 2022-07-19 Gn[facility]ist pack-years 00:00:00 00:00:00 Hospital Tobacco use and 2022-07-19 2022-07-19 Smokeless [facility]ist exposure 00:00:00 00:00:00 tobacco non-user Hospital Alcohol Comment 2018-04-25 2018-04-25 2-3 times per Method ist 00:00:00 00:00:00 month [facility] Sex Assigned At [birth year] Gn[facility] 00:00:00 00:00:00 Hospital Smoking Status Start Date Stop Date Source Unknown if ever smoked [facility] Smokes tobacco daily 2022-07-19 00:00:00 [facility] Medications Ordered Filled Start Stop Current Ordering Indication Dosage Frequency Signature Comments Components Source Medication Medication Date Date Medication? Clinician (SIG) Name Name HYDROcodone Yes 82321 1{tbl} Q4H Take 1 M ethodi -acetaminop 9-[address] hen (NORCO) 13:57: mouth Hospi ta 10-325 mg 51 every 4 l per tablet (four) hours as needed for moderate pain .acute pain. furosemide Yes 40mg QD Take 1 Metho di (Lasix) 40 8-20 tablet (40 st mg tablet 00:00: mg total) Hos adelso 00 by mouth l daily. DC after edema resolves Xarelto 20 Yes 20mg QD Take 20 mg M ethodi mg tablet 8-[address] 00:00: daily. Hospita 00 l morphine Yes continuous Met hodi sulfate in 5-[address] 0.9 % NaCl 00:00: Hospita (morphine 00 l in 0.9 % sodium chlor) 100 mg/100 mL (1 mg/mL) prefilled pump reservoir Vital Signs Vital Name Observation Time Observation Value Comments Source Height 2023-02-11 09:12:00 182.88 CM Weight 2023-02-11 09:12:00 158.75 KG Height 2022-12-12 11:20:00 182.88 CM Weight 2022-12-12 11:20:00 151.49 KG Height 2022-11-29 10:40:00 182.88 CM Weight 2022-11-29 10:40:00 156.94 KG Systolic blood 2022-08-07 18:56:00 112 mm[Hg] [facility] pressure Diastolic blood 2022-08-07 18:56:00 56 mm[Hg] [facility] pressure Heart rate 2022-08-07 18:56:00 77 /min [facility] Body temperature 2022-08-07 18:56:00 36.11 Claudia [facility] Respiratory rate 2022-08-07 18:56:00 18 /min [facility] Body weight 2022-06-20 16:00:00 152.409 kg [facility] BMI 2022-06-20 16:00:00 45.57 kg/m2 [facility] Body height 2022-05-28 13:16:00 182.9 cm [facility] Oxygen saturation in 2022-04-25 15:41:00 98 /min [facility] Arterial blood by Pulse oximetry Procedures Procedure Date / Time Performed Performing Clinician Sourc e REPOS LT MT W/IF DEVC 2022-12-12 00:00:00 Carline barajas [facility] OPEN APPROACH Center XR FOOT 3+ VW RIGHT 2022-08-29 19:12:20 Trudi [facility] XR FOOT 3+ VW LEFT 2022-08-29 19:12:03 Trudi [facility] HC DEBRID SELECT 2022-07-26 19:30:00 Ny [facility] HC IRENE MULTI KIANA WND 2022-07-19 20:16:24 En Harper [facility] HC DEBRID SELECT 2022-07-19 19:30:00 Ny [facility] < HC IRENE MULTI KIANA WND 2022-07-12 21:15:59 Wooten, Ninfa [facility] COMPRESSN BK HC DEBRID SELECT 2022-07-12 20:15:00 Ny, [facility] 20SQCM OR < HC DEBRID SELECT 2022-07-05 20:00:00 Ny, [facility] 20SQCM OR < MRI LUMBAR SPINE W WO 2022-06-20 16:44:27 Vinod Barr [facility] CONTRAST CT VENOGRAM ABDOMEN & 2022-06-01 20:43:39 [facility] PELVIS Delvin POC CREATININE 2022-06-01 19:43:00 [facility] Delvin ESTIMATED GFR 2022-06-01 19:43[facility]00 [facility] 2022-05-18 14:41:36 [facility] COMPLETE W BENDING US DUPLEX VENOUS LOWER 2022-04-25 15:49:01 [facility] EXTREMITY LEFT Delvin OP CLINIC 2020-10-06 06:01:00 Doctor Unassigned, No [facility] NOTES/CONSULTS Name Medical Branch Plan of Care Planned Activity Planned Date Details Comments Source Future Scheduled 2023-02-17 Pneumococcal Vaccine: [facility] Test 02:05:07 Pediatrics (0 to 5 Years) and At-Risk Patients (6 to 64 Years) (1 - PCV) [code = Pneumococcal Vaccine: Pediatrics (0 to 5 Years) and At-Risk Patients (6 to 64 Years) (1 - PCV)] Future Scheduled 2023-02-17 Hepatitis C screening [facility] Test 02:05:07 (procedure) [code = 339584921] Future Scheduled 2023-02-17 COLONOSCOPY SCREENING [facility] Test 02:05:07 [code = COLONOSCOPY SCREENING] Future Scheduled 2023-02-17 Screening for [facility] Test 02:05:07 malignant neoplasm of lung (procedure) [code = 002580068] Future Scheduled 2023-02-17 SHINGLES VACCINES (1 Met [facility] Test 02:05:07 of 2) [code = SHINGLES VACCINES (1 of 2)] Future Scheduled 2023-02-17 COVID-19 VACCINE (3 - [facility] Test 02:05:07 Booster for Moderna series) [code = COVID-19 VACCINE (3 - Booster for Moderna series)] Future Scheduled 2023-02-17 INFLUENZA VACCINE Method [facility] Test 02:05:07 [code = INFLUENZA VACCINE] Encounters Start End Encounter Admission Attending Care Care Encounter Source Date/Time Date/Time Type Type Clinicians Facility Department ID 2023-02-15 2023-02-15 Outpatient Alem CHOI [facility] [id number] [place] 14:30:00 14:30:00 [facility]22-12-12 2022-12-12 Outpatient Alem CHOI [facility] [id number] [facility] 09:26:00 13:08:00 [facility] 2022-08-29 2022-08-29 [facility], 1.2.840.1 [id number] Methodi 13:45:38 23:59:00 Encounter Dhvanil 60762.1.[address] Kunjan 3.430.2.7 Hospit a .3.145519 l .8 2022-08-29 2022-08-29 [facility], 1.2.840.1 [id number] Methodi 13:45:00 13:45:00 Encounter Dhvanil 14678.1.[address] Kunjan 3.430.2.7 Hospit a .3.899119 l .8 2022-08-29 2022-08-29 Travel 1.2.840.1 1.2.115.454 [id number] [id number] Methodi 00:00:00 00:00:[address] 3.430.2.7 0.2.7.3.698 Ho spita .3.495706 084.8 l .8 2022-08-29 2022-08-29 [facility] [id number] [address] [place] [address] 00:00:00 00:00:00 DHVANIL [address] 2022-08-29 2022-08-29 [facility] [id number] [place] 00:00:00 00:00:00 [address] 2022-08-24 2022-08-24 Transcribe David, 1.2.840.1 [id number] 2 [id number] Methodi 00:00:00 00:00:00 Orders Albert R. 83141.1.1 783 s t 3.430.2.7 Hospit a .3.231299 l .8 2022-08-24 2022-08-24 Telephone David 1.2.840.1 [id number] Methodi 00:00:00 00:00:00 Albert R. 17583.1.1 487 s t 3.430.2.7 Hospit a .3.305572 l .8 2022-08-07 2022-08-07 Office Trudi, 1.2.840.1 [id number] 1553 Methodi 14:00:00 14:26:41 Visit Dhvanil [address]9083.1.[address] Kunjan 3.430.2.7 Hospit a .3.255685 l .8 2022-08-07 2022-08-07 Travel 1.2.840.1 1.2.664.553 7312 [id number] Methodi 00:00:00 00:00:[address] 3.430.2.7 0.2.7.3.698 Ho spita .3.744185 084.8 l .8 2022-08-07 2022-08-07 Outpatient [facility] [id number] [place] 00:00:00 00:00:[address] 2022-07-26 2022-07-26 Office Main Alejandra 1.2.840.1 [id number] Methodi 14:30:00 14:56:[address] 3.430.2.7 Hospit a .3.487318 l .8 2022-07-26 2022-07-26 Travel 1.2.840.1 1.2.486.118 3848 [id number] Methodi 00:00:00 00:00:[address] 3.430.2.7 0.2.7.3.698 Ho spita .3.472247 084.8 l .8 2022-07-26 2022-07-26 Outpatient [place], MAIN [facility] [id number] [place] 00:00:00 00:00:[address] 2022-07-19 2022-07-19 Office Ny, Main 1.2.840.1 [id number] Methodi 14:30:00 15:20:[address] 3.430.2.7 Hospit a .3.579977 l .8 2022-07-19 2022-07-19 Travel 1.2.840.1 1.2.697.788 4770 [id number] Methodi 00:00:00 00:00:[address] 3.430.2.7 0.2.7.3.698 Ho spita .3.987924 084.8 l .8 2022-07-19 2022-07-19 [place]patient [place], [place] [facility] [id number] [place] 00:00:00 00:00:[address] 2022-07-12 2022-07-12 Office Ny, Main 1.2.840.1 [id number] Methodi 15:15:00 16:00:[address] 3.430.2.7 Hospit a .3.188188 l .8 2022-07-12 2022-07-12 Travel 1.2.840.1 1.2.856.111 1713 [id number] Methodi 00:00:00 00:00:[address] 3.430.2.7 0.2.7.3.698 Ho spita .3.912154 084.8 l .8 2022-07-12 2022-07-12 [place]patient [place] [facility] [id number] [place] 00:00:00 00:00:[address] 2022-07-05 2022-07-05 Office Main Alejandra 1.2.840.1 [id number] Methodi 15:00:00 16:14:[address] 3.430.2.7 Hospit a .3.887473 l .8 2022-07-05 2022-07-05 Travel 1.2.840.1 1.2.411.811 7969 [id number] Methodi 00:00:00 00:00:[address] 3.430.2.7 0.2.7.3.698 Ho spita .3.310795 084.8 l .8 2022-07-05 2022-07-05 Outpatient MAIN ALEJANDRA [facility] [id number] [place] 00:00:00 00:00:[address] 2022-07-04 2022-07-04 Abstract Padmini Sal 1.2.840.1 [id number] 2 [id number] Methodi 00:00:00 00:00:[address] 3.430.2.7 Hospit a .3.599832 l .8 2022-07-02 2022-07-02 Travel 1.2.840.1 1.2.386.948 2049 [id number] Methodi 00:00:00 00:00:[address] 3.430.2.7 0.2.7.3.698 Ho spita .3.324614 084.8 l .8 2022-06-29 2022-06-29 Office Momo, 1.2.840.1 [id number] 7135 Methodi 10:30:00 10:48:14 Visit Vinod Mckinney 76853.1.1 945 s t 3.430.2.7 Hospit a .3.694040 l .8 2022-06-29 2022-06-29 Travel 1.2.840.1 1.2.202.974 3072 [id number] Methodi 00:00:00 00:00:[address] 3.430.2.7 0.2.7.3.698 Ho spita .3.280682 084.8 l .8 2022-06-29 2022-06-29 [facility] [id number] [place] 00:00:00 00:00:00 VINOD [address] 2022-06-22 2022-06-22 [place] [facility], 1.2.840.1 [id number] 2 [id number] Methodi 00:00:00 00:00:[address] 3.430.2.7 Hospit a .3.505564 l .8 2022-06-20 2022-06-20 [facility] 1.2.840.1 [id number] Methodi 10:37:42 23:59:00 Encounter Vinod Mckinney 98285.1.[address] 3.430.2.7 Hospit a .3.902231 l .8 2022-06-20 2022-06-20 Travel 1.2.840.1 1.2.118.599 2765 [id number] Methodi 00:00:00 00:00:[address] 3.430.2.7 0.2.7.3.698 Ho spita .3.187195 084.8 l .8 2022-06-20 2022-06-20 [facility] [id number] [place] 00:00:00 00:00:00 VINOD [address] 2022-06-01 2022-06-01 [facility], 1.2.840.1 [id number] Methodi 14:24:54 23:59:00 Encounter Sindy 19754.1.[address] Delvin 3.430.2.7 Hospi ta .3.640404 l .8 2022-06-01 2022-06-01 Travel 1.2.840.1 1.2.908.697 7421 [id number] Methodi 00:00:00 00:00:[address] 3.430.2.7 0.2.7.3.698 Ho spita .3.891372 084.8 l .8 2022-06-01 2022-06-01 Outpatient [facility] [id number] [place] 00:00:00 00:00:00 SINDY Castellanos Met hodi st 2022-05-31 2022-05-31 Travel 1.2.840.1 1.2.861.833 4973 [id number] Methodi 00:00:00 00:00:[address] 3.430.2.7 0.2.7.3.698 Ho spita .3.121924 084.8 l .8 2022-05-31 2022-05-31 Telephone [place] 1.2.840.1 [id number] Methodi 00:00:00 00:00:00 , Salma 05454.1.[address] 3.430.2.7 Hospit a .3.498169 l .8 2022-05-18 2022-05-18 Office [place], 1.2.840.1 [id number] Methodi 10:00:00 10:45:05 Visit Vinod Mckinney 03104.1.1 029 s t 3.430.2.7 Hospit a .3.406802 l .8 2022-05-18 2022-05-18 Travel 1.2.840.1 1.2.961.518 5411 [id number] Methodi 00:00:00 00:00:[address] 3.430.2.7 0.2.7.3.698 Ho spita .3.273309 084.8 l .8 2022-05-18 2022-05-18 Outpatient [facility] [id number] [place] 00:00:00 00:00:00 VINOD Eileen [facility] 2022-05-18 2022-05-18 Outpatient [facility] [id number] [place] 00:00:00 00:00:00 VINOD [address] 2022-05-01 2022-05-01 Travel 1.2.840.1 1.2.103.298 3072 [id number] Methodi 00:00:00 00:00:[address] 3.430.2.7 0.2.7.3.698 Ho spita .3.922974 084.8 l .8 2022-05-01 2022-05-01 Telephone [place] 1.2.840.1 [id number] Methodi 00:00:00 00:00:00 , Salma 73039.1.[address] 3.430.2.7 Hospit a .3.775324 l .8 2022-04-25 2022-04-25 Office [facility], 1.2.840.1 [id number] 3943 Methodi 10:40:00 12:23:20 Visit Sindy 00514.1.1 555 s t [place] 3.430.2.7 Hospi ta .3.622939 l .8 2022-04-25 2022-04-25 Outpatient [facility], [facility] [id number] [place] 00:00:00 00:00:00 SINDY [address] 2022-04-25 2022-04-25 Outpatient [facility], [facility] [id number] [place] 00:00:00 00:00:00 CHARZENONTTA [address] 2022-04-25 2022-04-25 Telephone [place] 1.2.840.1 [id number] Methodi 00:00:00 00:00:00 , Salma 38377.1.[address] 3.430.2.7 Hospit a .3.411823 l .8 2022-04-25 2022-04-25 Orders [place] 1.2.840.1 [id number] 21 [id number] Methodi 00:00:00 00:00:00 Only , Salma 36744.1.[address] 3.430.2.7 Hospit a .3.021677 l .8 2022-04-25 2022-04-25 [facility] 1.2.840.1 1.2.787.567 6887 [id number] Methodi 00:00:00 00:00:[address] 3.430.2.7 0.2.7.3.698 Ho spita .3.554110 084.8 l .8 2022-01-31 2022-01-31 Outpatient BAVARE, [facility] [id number] [place] 00:00:00 00:00:00 CHARUDATTA [address] 2022-01-18 2022-01-21 Outpatient SLOVENIAN, NAVIN [facility] 021 [id number] [place] 00:00:00 00:00:[address] 2022-01-17 2022-01-17 Outpatient [facility] [id number] [place] 00:00:00 00:00:[address] 2022-01-17 2022-01-17 Outpatient BAVARE, [facility] [id number] Burns 00:00:00 00:00:00 CHARUDATTA [address] 2022-01-15 2022-01-15 Outpatient [facility] [id number] Burns 00:00:00 00:00:[address] 2022-01-11 2022-01-12 Inpatient NAVIN APODACA [facility] 021 [id number] Burns 00:00:00 00:00:[address] 2021-12-20 2021-12-20 [facility] [id number] Burns 00:00:00 00:00:00 CHARUDATTA [address] 2021-12-20 2021-12-20 Outpatient BAVARE, [facility] [id number] Burns 00:00:00 00:00:00 CHARUDATTA [address] 2021-12-11 2021-12-11 Outpatient BAVARE, [facility] [id number] Burns 00:00:00 00:00:00 CHARUDATTA [address] 2021-10-04 2021-10-04 Outpatient BAVARE, [facility] [id number] [place] 00:00:00 00:00:00 CHARUDATTA [address] 2021-08-08 2021-08-11 Outpatient BAVKUNAL, [facility] 677 [id number] [place] 00:00:00 00:00:00 CHARUDATTA 231 [facility] 2021-07-26 2021-07-26 Outpatient BAVARE, [facility] [id number] 002 Burns 00:00:00 00:00:00 CHARUDATTA [address] 2021-06-28 2021-07-07 Inpatient NAVIN APODACA [facility] 064 [id number] Burns 00:00:00 00:00:[address] 2021-06-28 2021-06-28 Outpatient JUAN, DEXTER [facility] [id number] Burns 00:00:00 00:00:[address] 2021-06-27 2021-06-27 Outpatient JUAN, DEXTER [facility] [id number] [place] 00:00:00 00:00:[address] 2021-06-27 2021-06-27 Outpatient JUAN, DEXTER [facility] [id number] [place] 00:00:00 00:00:[address] 2021-03-17 2021-03-17 Outpatient Live ACLDERON, [facility] [id number] Univers 14:40:00 14:40:[address] [facility] 2021-02-17 2021-02-[address] [facility] [id number] Univers 14:50:00 14:50:00 [facility] 2021-01-26 2021-01-28 Inpatient DONALD MCKEON [facility] 021 [id number] [place] 00:00:00 00:00:[address] 2021-01-24 2021-01-24 Outpatient DIONNE, [facility] [id number] [place] 00:00:00 00:00:00 IMRAN [address] 2021-01-24 2021-01-24 Outpatient DIONNE, [facility] [id number] [place] 00:00:00 00:00:00 IMRAN 584 [facility] i st 2020-11-07 2020-11-07 Outpatient SHAN, [facility] [id number] [place] 00:00:00 00:00:00 KESAVAN [address] 2020-11-02 2020-11-02 Outpatient SHAN, [facility] [id number] [place] 00:00:00 00:00:00 BRANDEN [address] 2020-11-02 2020-11-02 Outpatient SHAN, [facility] [id number] [place] 00:00:00 00:00:00 BRANDEN [address] 2020-11-01 2020-11-01 Outpatient SHAN, [facility] [id number] [place] 00:00:00 00:00:00 BRANDEN [address] 2020-11-01 2020-11-01 Outpatient SHAN, [facility] [id number] [place] 00:00:00 00:00:00 BRANDEN [address] 2020-11-01 2020-11-01 Outpatient SHAN, [facility] [id number] [place] 00:00:00 00:00:00 BRANDEN [address] 2020-11-01 2020-11-01 Outpatient SHAN, [facility] [id number] [place] 00:00:00 00:00:00 BRANDEN [address] 2020-10-21 2020-10-21 Outpatient SHAN, [facility] [id number] [place] 00:00:00 00:00:00 BRANDEN 168 [facility] 2020-10-06 2020-10-06 Orders Doctor FLORESITA [id number] [facility] 00:00:00 00:00:00 Only Unassigned, LEI [id number] ity of [place] [facility] [id number] Nicholas as [phone] [address] 2020-09-29 2020-09-29 Ancillary [place] [facility] 1 [id number] Univers 14:35:26 15:35:26 Visit [place] Town[place] [id number] ity [id number] [phone] [place] [facility] 179 [facility] 2020-09-29 2020-09-[address] [facility] [id number] Univers 14:40:00 14:40:00 CUBA kong of [facility] 2020-09-20 2020-09-20 Outpatient JAKUB BedollaTO RADI [id number] [facility] 08:30:00 08:30:00 Tomiko [facility] 2020-09-15 2020-09-15 Outpatient CARMELITA [facility] [id number] [place] 00:00:00 00:00:00 ARTIE [address] 2020-09-15 2020-09-15 Outpatient CARMELITA [facility] [id number] [place] 00:00:00 00:00:00 ARTIE [address] 2020-08-03 2020-08-03 Outpatient Alem SOTO, [facility] PT PREMIER [id number] [facility] 12:43:00 12:43:00 KERRY [facility] 2020-07-04 2020-07-04 Outpatient SEN [facility] [id number] [place] 00:00:00 00:00:00 DK [address] Results Test Description Test Time Test Comments Results Result Comments Source GLUCOMETER GLUCOSE- LAB USE ONLY 2022-12-12 10:23:00 Test Item Value Reference Range Interpretation Comme nts GLUCOMETER (test code = GMG) 106 mg/dL 70-100 H Meter ID: [id number]: [id number] KENAN HINKLE POC [id number] 20:21:00 Test Item Value Reference Range Interpretation Comments POC creatinine (test 1.3 mg/dl 0.7-1.2 H Operato r Name: David code = 11601-9) NasJayden ce ID: [id number] Lab Interpretation Abnormal (test code = 58159-2) [facility] [id number] 20:21:00 Test Item Value Reference Range Interpretation Comments Estimated GFR (test 61 mL/min/1.73 m2 Caterg ory Units code = 66604-8) Interpretati onG1 >=90 Normal or highG 2 60-89 Mildly decrease dG3a 45-59 Mildly to moder ately oxglepxesA3p 30 -44 Moderately to s everely decreasedG4 15- 29 Severely decreasedG5 <15 Kidney failureThe eGFR was calculated harry g the Chronic Kidney Disease Epidemiology Co llaboration (CKD-EPI) equat ion. Interpretation is based on recommendations of the National Kidney Foundation-Kidn ey Disease Outcomes Qualit y Initiative (NKF-KDOQI) pub lished in 2014. [facility] RNA [Presence] in Respiratory specimen by LETI with probe [id number] 17:43:33 Test Item Value Reference Range Interpretation Comments SARS coronavirus RNA [Presence] Not detected in Isolate by LETI with probe detection (test code = 21300-3) Whether patient is employed in a Unknown healthcare setting (test code = 06131-6) Whether the patient has symptoms Unknown related to condition of interest (test code = 44640-7) Whether the patient was Unknown hospitalized for condition of interest (test code = 65746-6) Whether the patient was admitted Unknown to intensive care unit (ICU) for condition of interest (test code = 49062-8) Whether patient resides in a Unknown congregate care setting (test code = 17458-2) status (test code = Unknown 28085-3) Date and time of symptom onset Unknown (test code = 61696-0) KENZIE CHOWDARYSARS-CoV-2 (COVID-19) RNA [Presence] in Respiratory specimen by LETI with probe [id number] 17:43:33 Test Item Value Reference Range Interpretation Comments SARS-CoV-2 (COVID-19) RNA Not detected [Presence] in Respiratory specimen by LETI with probe detection (test code = 63646-3) Whether patient is employed in a Unknown healthcare setting (test code = 23802-6) Whether the patient has symptoms Unknown related to condition of interest (test code = 27153-0) Whether the patient was Unknown hospitalized for condition of interest (test code = 69638-8) Whether the patient was admitted Unknown to intensive care unit (ICU) for condition of interest (test code = 88073-2) Whether patient resides in a Unknown congregate care setting (test code = 32176-7) status (test code = Unknown 61281-9) Date and time of symptom onset Unknown (test code = 10823-7) KENZIE WELSH BSTBGUXL-YcV-2 (COVID-19) RNA [Presence] in Respiratory specimen by LETI with probe [id number] 22:02:58 Test Item Value Reference Range Interpretation Comments SARS-CoV-2 (COVID-19) RNA Not detected Not-Detected [Presence] in Respiratory specimen by LETI with probe detection (test code = 19470-7) Whether patient is employed in a healthcare setting (test code = 40423-8) Whether the patient has symptoms related to condition of interest (test code = 65453-0) Patient was hospitalized because of this condition (test code = 95240-8) Whether the patient was admitted to intensive care unit (ICU) for condition of interest (test code = 66758-7) Whether patient resides in a congregate care setting (test code = 16422-7) [facility]) RNA [Presence] in Respiratory specimen by LETI with probe [id number] 14:38:55 Test Item Value Reference Range Interpretation Comments SARS-CoV-2 (COVID-19) RNA Not detected Not-Detected [Presence] in Respiratory specimen by LETI with probe detection (test code = 99864-6) [facility]
[2023-04-15 16:47] LABS: Albumin 3.7 g/dL (3.4-5.0); Bilirubin Total 0.4 mg/dL (0.2-1.0); Potassium 5.5 mEq/L (3.5-5.1)
--- NOTE | 2023-04-15 17:21 | ER ---
Nurse's Notes [facility] Name: Wali Lang Age: 58 yrs Sex: Male : 1965 Arrival Date: 04/15/2023 Time: 15:27 Bed 18 Private MD: Diagnosis: Hyperglycemia, unspecified;Dehydration Presentation: 04/15 15:41 Chief complaint: Patient states: he started having blurry vision a few days ago, but ap3 when he checked his blood pressure it was normal. patient states he checked his blood sugar today and it was 568 so he took 4 metformin 500mg. patient also reports a headache, denies nausea or vomiting at this time. Coronavirus screen: At this time, the client does not indicate any symptoms associated with coronavirus-19. Ebola Screen: No symptoms or risks identified at this time. Initial Sepsis Screen: Does the patient meet any 2 criteria? No. Patient's initial sepsis screen is negative. Does the patient have a suspected source of infection? No. Patient's initial sepsis screen is negative. Risk Assessment: Do you want to hurt yourself or someone else? Patient reports no desire to harm self or others. Onset of symptoms was April 13, 2023. 15:41 Method Of Arrival: Ambulatory ap3 15:41 Acuity: FERNY 3 ap3 Triage Assessment: 15:44 General: Appears in no apparent distress. Behavior is calm, cooperative. Pain: ap3 Complains of pain in head Pain began gradually. Neuro: Level of Consciousness is awake, alert, obeys commands, Oriented to person, place, time, situation, Reports blurred vision headache. Cardiovascular: Patient's skin is warm and dry. Respiratory: Airway is patent Respiratory effort is even, unlabored, Respiratory pattern is regular, symmetrical. GI: Reports increased thirst. Historical: - Allergies: 15:43 Tape; ap3 - PMHx: 15:43 Hypertension; Diabetes mellitus; ap3 - Immunization history:: Client reports receiving the 2nd dose of the Covid vaccine. - Social history:: Smoking status: Patient denies any tobacco usage or history of. - Family history:: not pertinent. - Hospitalizations: : No recent hospitalization is reported. Screenin:45 [facility] ED Fall Risk Assessment (Adult) History of falling in the last 3 months, ap3 including since admission No falls in past 3 months (0 pts). Abuse screen: Denies threats or abuse. Nutritional screening: No deficits noted. Tuberculosis screening: No symptoms or risk factors identified. Assessment: 16:08 Reassessment: See triage assessment. ld1 Vital Signs: 15:41 Pulse 94; Resp 17; Temp 97.5; Pulse Ox 97% ; Weight 152.86 kg; Height 6 ft. 0 in. ; ap3 15:46 BP 177 / 118; ap3 16:08 BP 141 / 51; Pulse 73; Resp 18; Pulse Ox 96% on R/A; ld1 17:11 BP 134 / 76; Pulse 68; Resp 18; Pulse Ox 100% on R/A; ld1 15:41 Body Mass Index 45.70 (152.86 kg, 182.88 cm) ap3 ED Course: 15:28 Patient arrived in ED. ts1 15:31 Blake Burgess MD is Attending Physician. rn 15:36 Sindy Greene RN is Primary Nurse. ld1 15:43 Triage completed. ap3 15:45 Arm band placed on right wrist. ap3 15:45 Patient has correct armband on for positive identification. Bed in low position. Call ap3 light in reach. Adult w/ patient. 16:08 No provider procedures requiring assistance completed. ld1 16:08 Inserted saline lock: 20 gauge in right antecubital area, using aseptic technique. ld1 Blood collected. 17:53 IV discontinued, intact, bleeding controlled, No redness/swelling at site. Pressure mb9 dressing applied. Administered Medications: 16:08 Drug: NS 0.9% IV 1000 ml Route: IV; Rate: 1000 ml; Site: right antecubital; ld1 16:28 Drug: Insulin Regular Human IVP 5 units {Co-Signature: [email or web address] (Liberty Delgado RN).} ld1 Route: IVP; Site: right antecubital; Outcome: 17:21 Discharge ordered by . rn 17:53 Discharged to home ambulatory. mb9 17:53 Condition: stable 17:53 Discharge instructions given to patient, Instructed on discharge instructions, follow up and referral plans. Demonstrated understanding of instructions, follow-up care. 17:54 Patient left the ED. mb9 Signatures: Blake Burgess MD MD rn Prokisch, Amanda, RN RN ap3 Sindy Greene RN RN ld1 Liberty Delgado, FRANCES RN mb9 Lolis Kennedy, TANVI PAS ts1 Sandy, Liberty Urias RN mb9
--- NOTE | 2023-04-15 17:21 | EDPHYS ---
Physician Documentation [facility] Name: Wali Lang Age: 58 yrs Sex: Male : 1965 Arrival Date: 04/15/2023 Time: 15:27 Bed 18 Private MD: ED Physician Blake Burgess HPI: 04/15 15:50 This 58 yrs old Male presents to ER via Ambulatory with complaints of High rn Blood Sugar. 15:50 The patient or guardian reports hyperglycemia, that was potentially precipitated by not rn taking metformin. Onset: The symptoms/episode began/occurred at an unknown time. Associated signs and symptoms: Pertinent positives: polydipsia, polyuria, Pertinent negatives: diarrhea, seizure activity, Current symptoms: In the emergency department the patient's symptoms are unchanged from the initial presentation. The patient has experienced similar episodes in the past. The patient has been recently seen by a physician:. Pt reports just started metformin a few months ago, has not taken it for 2 months, notes a couple of weeks of increased thirst/fatigue. Sister told him to check his sugar today, was about 600. No fever. No chest pain/sob/abd pain/vomiting/urinary symptoms/diarrhea. . Historical: - Allergies: 15:43 Tape; ap3 - PMHx: 15:43 Hypertension; Diabetes mellitus; ap3 - Immunization history:: Client reports receiving the 2nd dose of the Covid vaccine. - Social history:: Smoking status: Patient denies any tobacco usage or history of. - Family history:: not pertinent. - Hospitalizations: : No recent hospitalization is reported. ROS: 15:50 Constitutional: Negative for fever, chills, and weight loss, Eyes: Negative for injury, rn pain, redness, and discharge, Neck: Negative for injury, pain, and swelling, Cardiovascular: Negative for chest pain, palpitations, and edema, Respiratory: Negative for shortness of breath, cough, wheezing, and pleuritic chest pain, Abdomen/GI: Negative for abdominal pain, nausea, vomiting, diarrhea, and constipation, Back: Negative for injury and pain, MS/Extremity: Negative for injury and deformity, Skin: Negative for injury, rash, and discoloration, Neuro: Negative for headache, numbness, tingling, and seizure. Exam: 15:50 Constitutional: This is a well developed, well nourished patient who is awake, alert, rn and in no acute distress. Head/Face: Normocephalic, atraumatic. ENT: dry MM Cardiovascular: Regular rate and rhythm. No pulse deficits. Respiratory: No increased work of breathing, no retractions or nasal flaring. Abdomen/GI: soft, non-tender, palpable RLQ pain pump Skin: Warm, dry MS/ Extremity: Pulses equal, no cyanosis. Neuro: Awake and alert, GCS 15 Vital Signs: 15:41 Pulse 94; Resp 17; Temp 97.5; Pulse Ox 97% ; Weight 152.86 kg; Height 6 ft. 0 in. ; ap3 15:46 BP 177 / 118; ap3 16:08 BP 141 / 51; Pulse 73; Resp 18; Pulse Ox 96% on R/A; ld1 17:11 BP 134 / 76; Pulse 68; Resp 18; Pulse Ox 100% on R/A; ld1 15:41 Body Mass Index 45.70 (152.86 kg, 182.88 cm) ap3 MDM: 15:31 Patient medically screened. rn 17:21 Differential diagnosis: DKA, hyperglycemia, dehydration. Data reviewed: vital signs, rn nurses notes, lab test result(s), and as a result, I will discharge patient. Counseling: I had a detailed discussion with the patient and/or guardian regarding: the historical points, exam findings, and any diagnostic results supporting the discharge/admit diagnosis, lab results, the need for outpatient follow up, to return to the emergency department if symptoms worsen or persist or if there are any questions or concerns that arise at home. Response to treatment: the patient's symptoms have markedly improved after treatment, and as a result, I will discharge patient. Special discussion: I discussed with the patient/guardian in detail that at this point there is no indication for admission to the hospital. It is understood, however, that if the symptoms persist or worsen the patient needs to return immediately for re-evaluation. Based on the history and exam findings, there is no indication for further emergent testing or inpatient evaluation. I discussed with the patient/guardian the need to see the primary care provider for further evaluation of the symptoms. ED course: Pt will restart his metformin, check glucose more regularly, and f/u with pcp for further management. All questions answered. . 04/15 15:47 Order name: CBC with Diff; Complete Time: 16:37 rn 04/15 15:47 Order name: CMP; Complete Time: 16:57 rn 04/15 15:47 Order name: Ketone, Serum; Complete Time: 16:37 rn 04/15 16:15 Order name: Glucose, Ancillary Testing; Complete Time: 16:37 EDMS 04/15 17:19 Order name: Glucose, Ancillary Testing; Complete Time: 17:22 EDMS 04/15 15:47 Order name: IV Start; Complete Time: 16:08 rn 04/15 15:47 Order name: Glucose Level; Complete Time: 16:08 rn Administered Medications: 16:08 Drug: NS 0.9% IV 1000 ml Route: IV; Rate: 1000 ml; Site: right antecubital; ld1 16:28 Drug: Insulin Regular Human IVP 5 units {Co-Signature: [email or web address] (Liberty Delgado RN).} ld1 Route: IVP; Site: right antecubital; Disposition Summary: 04/15/23 17:21 Discharge Ordered Location: Home rn Problem: new rn Symptoms: have improved rn Condition: Stable rn Diagnosis - Hyperglycemia, unspecified rn - Dehydration rn Followup: rn - With: Private Physician - When: As needed - Reason: Recheck today's complaints, Re-evaluation by your physician Discharge Instructions: - Discharge Summary Sheet rn - Dehydration, Adult rn - Hyperglycemia rn - Blood Glucose Monitoring, Adult rn Forms: - Medication Reconciliation Form rn - Thank You Letter rn - Antibiotic rn urgent care - Prescription Opioid Use rn Signatures: Dispatcher [employer] Blake Jenkins MD MD rn Prokisch, Amanda RN RN [id number] Sindy Greene RN RN ld1 Liberty Delgado RN mb9
[2023-04-15 18:10] VITALS: TEMP 97.5
[2023-04-15 18:17] VITALS: BP 134/76; O2SAT 100
== END 2023-04-15 17:54 | disposition home or self-care (01) ==
LOC: ER 15:27
DX: E11.65 Type 2 diabetes mellitus with hyperglycemia (principal); E86.0 Dehydration; I10 Essential (primary) hypertension; Z91.048 Other nonmedicinal substance allergy status
CPT/HCPCS: 85025; 36415; 82010; 82947 ×2; 80053; 96374; 99284; J1815; J7030

== ENCOUNTER 2025-07-06 13:51 | Emergency (ER) | payer OTHER ==
[2025-07-06 14:24] LABS: Absolute Lymphocytes (CBC) 1.0 K/uL (0.7-4.9); Hematocrit 42.4 % (39.6-49.0); Hemoglobin 14.1 g/dL (13.6-17.9); MCH 29.3 pg (27.0-35.0); MCHC 33.3 g/dL (32.0-36.0); MCV 87.7 fL (80-100); MPV 9.9 fL (7.6-11.3); Nucleated RBC Absolute Count 0.0 (0-0); Nucleated Red Blood Cells % 0.1 % (0-0); RBC Red Blood Cell Count 4.84 M/uL (4.33-5.43); White Blood Count 8.90 thou/uL (4.3-10.9)
[2025-07-06 14:35] LABS: PT Prothrombin Time 14.4 SECONDS (10-13.0); PTT, Activated Partial Thromb 34.1 SECONDS (27.2-37.4); Protime INR 1.28
[2025-07-06] MEDS ORDERED: MORPHINE 2 MG/ML SYR ONE (14:42)
[2025-07-06 14:45] LABS: ALT/SGPT 17 U/L (16-61); Albumin 3.8 g/dL (3.4-5.0); Albumin/Globulin Ratio 1.2 (1.1-1.8); Alkaline Phosphatase 82 U/L (45-117); Anion Gap 7.5 mEq/L (5.0-15.0); BUN Blood Urea Nitrogen 20 mg/dL (7-18); Bilirubin Indirect, Calculated 0.7 mg/dL (0.2-0.8); Globulin 3.3 g/dL (2.3-3.5); Glucose Level 181 mg/dL (74-106); Magnesium 2.0 mg/dL (1.6-2.4); Potassium 3.5 mEq/L (3.5-5.1); Troponin High Sensitivity 3.3 pg/mL (<58.9)
[2025-07-06 14:47] LABS: AST/SGOT < 10 U/L (15-37)
[2025-07-06] MEDS ORDERED: MORPHINE 4 MG/ML SYR ONE (14:54)
--- NOTE | 2025-07-06 15:28 | RAD REPORT ---
EXAMINATION: ONE VIEW CHEST XR CLINICAL INDICATION: MALAISE TECHNIQUE: Frontal chest projection is submitted. Examination is limited by patient positioning and t echnique. COMPARISON: 07/14/2016 FINDINGS: The lungs are well inflated and clear. The heart is upper limit of normal in size. No displaced fract ures identified. IMPRESSION: No acute intrathoracic abnormalities.
--- NOTE | 2025-07-06 15:30 | ER ---
Nurse's Notes [facility] Name: Wali Lang Age: 60 yrs Sex: Male : 1965 Arrival Date: 07/06/2025 Time: 13:51 Bed 8 Private MD: Diagnosis: Opioid dependence with withdrawal Presentation: 07/06 13:53 Chief complaint: EMS states: MORPHINE PUMP EXCHANGED YESTERDAY AT [facility] [place] bp TODAY. Coronavirus screen: At this time, the client does not indicate any symptoms associated with coronavirus-19. Ebola Screen: No symptoms or risks identified at this time. Initial Sepsis Screen: Does the patient meet any 2 criteria? No. Patient's initial sepsis screen is negative. Does the patient have a suspected source of infection? No. Patient's initial sepsis screen is negative. Risk Assessment: Do you want to hurt yourself or someone else? Patient reports no desire to harm self or others. Onset of symptoms is unknown. Care prior to arrival: Medication(s) given: zofran 4 mg, IV initiated. 18 GA, in the left antecubital area, Glucose check: 210. 13:53 Method Of Arrival: EMS: [facility] bp 13:53 Acuity: FERNY 3 bp Triage Assessment: 13:55 General: Appears in no apparent distress. Behavior is calm, cooperative, appropriate bp for age. Pain: Denies pain. EENT: No deficits noted. Neuro: Reports LIGHTHEADED. Cardiovascular: Rhythm is sinus rhythm. Respiratory: No deficits noted. GI: No signs and/or symptoms were reported involving the gastrointestinal system. : No signs and/or symptoms were reported regarding the genitourinary system. Derm: No deficits noted. Musculoskeletal: No deficits noted. Historical: - Allergies: 13:55 Tape; bp - Home Meds: 13:55 morphine pump [Active]; losartan 25 mg Oral tab [Active]; gabapentin Oral [Active]; bp - PMHx: 13:55 diabetes mellitus; Hypertension; bp - Immunization history:: Adult Immunizations up to date. - Infectious Disease History:: Denies. - Social history:: Smoking status: Patient denies any tobacco usage or history of. Screenin:57 [facility] ED Fall Risk Assessment (Adult) History of falling in the last 3 months, bp including since admission No falls in past 3 months (0 pts) Confusion or Disorientation No (0 pts) Intoxicated or Sedated No (0 pts) Impaired Gait No (0 pts) Mobility Assist Device Used No (0 pt) Altered Elimination No (0 pt) Score/Fall Risk Level 0 - 2 = Low Risk Oriented to surroundings. Abuse screen: Denies threats or abuse. Denies injuries from another. Nutritional screening: No deficits noted. Tuberculosis screening: No symptoms or risk factors identified. Assessment: 13:57 General: SEE TRIAGE NOTE. bp Vital Signs: 13:53 BP 117 / 68; Pulse 62; Resp 16; Temp 98; Pulse Ox 100% ; bp 14:32 BP 123 / 82; Pulse 59; Resp 16; Pulse Ox 100% ; hb 16:10 BP 128 / 87; Pulse 54; Resp 17; Pulse Ox 100% ; bp ED Course: 13:52 Patient arrived in ED. bp 13:54 Loretta Hogue FNP-C [facility]. kb 13:54 Kd Yoder MD is Attending Physician. kb 13:55 Triage completed. bp 13:55 Arm band placed on. bp 13:57 Patient has correct armband on for positive identification. bp 13:57 Maintain EMS IV. Dressing intact. Good blood return noted. Site clean \T\ dry. Gauge \T\ bp site: 18 LAC. Flushed with 10 mL NS. 13:58 Micheal Dacosta, RN is Primary Nurse. bp 14:33 Basic Metabolic Panel Sent. bp 14:33 Hepatic Function Sent. bp 14:33 Magnesium Sent. bp 14:33 Protime (+inr) Sent. bp 14:33 Ptt, Activated Sent. bp 14:33 Troponin High Sensitivity Sent. bp 15:19 Chest Single View XRAY In Process Unspecified. EDMS 16:10 No provider procedures requiring assistance completed. IV discontinued, intact, bp bleeding controlled, No redness/swelling at site. Pressure dressing applied. Administered Medications: 14:44 Drug: morphine IVP or IV 2 mg IVP once over 4 mins Route: IVP; Infused Over: 4 mins; bp Site: left antecubital; 16:11 Follow up: Response: No adverse reaction bp 14:53 CANCELLED (Physician Discretion): morphineor iv 2 mg IVP once over 4 mins kb 14:57 Drug: morphine IVP or IV 4 mg IVP once over 4 mins Route: IVP; Infused Over: 4 mins; bp Site: left antecubital; 16:10 Follow up: Response: No adverse reaction bp Medication: 13:57 VIS not applicable for this client. bp Outcome: 15:29 Discharge ordered by MD. salmon 16:10 Discharged to home via wheelchair, with family, bp 16:10 Condition: stable 16:10 Discharge instructions given to patient, Instructed on discharge instructions, follow up and referral plans. Demonstrated understanding of instructions, follow-up care, 16:11 Patient left the ED. bp Signatures: Dispatcher [employer] EDLoretta Bañuelos, BARK PEELER-C BARK PEELER-Edyta Butler, RN RN Micheal Dacosta, RN RN bp
--- NOTE | 2025-07-06 15:30 | EDPHYS ---
Physician Documentation [facility] Name: Wali Lang Age: 60 yrs Sex: Male : 1965 Arrival Date: 07/06/2025 Time: 13:51 Bed 8 Private MD: ED Physician Kd Yoder HPI: 07/06 14:00 This 60 yrs old Male presents to ER via EMS with complaints of Near Syncope. kb 14:00 Pt is a 60 year old male who presents for nausea, lightheadedness, and metallic taste kb and smell that started today. States he had his morphine pump changed out yesterday at [facility] so he is concerned that it is leaking. Sister in room and spoke with recovery at [facility]. Pt's physician is in surgery now and will call back afterwards. . Historical: - Allergies: 13:55 Tape; bp - Home Meds: 13:55 morphine pump [Active]; losartan 25 mg Oral tab [Active]; gabapentin Oral [Active]; bp - PMHx: 13:55 diabetes mellitus; Hypertension; bp - Immunization history:: Adult Immunizations up to date. - Infectious Disease History:: Denies. - Social history:: Smoking status: Patient denies any tobacco usage or history of. ROS: 14:00 Constitutional: As per HPI kb Exam: 14:00 Constitutional: This is a well developed, well nourished patient who is awake, alert, kb and in no acute distress. Head/Face: Normocephalic, atraumatic. ENT: Moist Mucous membranes Cardiovascular: Regular rate Respiratory: Respirations even and unlabored. No increased work of breathing. Talking in full sentences Abdomen/GI: Soft, non-tender. No distention Skin: Warm, dry with normal turgor. Normal color. MS/ Extremity: Pulses equal, no cyanosis. Neurovascular intact. Full, normal range of motion. Neuro: Awake and alert, GCS 15, oriented to person, place, time, and situation. 14:56 ECG was reviewed by the Attending Physician. kb Vital Signs: 13:53 BP 117 / 68; Pulse 62; Resp 16; Temp 98; Pulse Ox 100% ; bp 14:32 BP 123 / 82; Pulse 59; Resp 16; Pulse Ox 100% ; hb 16:10 BP 128 / 87; Pulse 54; Resp 17; Pulse Ox 100% ; bp MDM: 13:54 Medical Screening Exam initiated kb 14:38 Data reviewed: vital signs, nurses notes. kb 14:39 Management of patient was discussed with the following: Dr Gee Hamilton's PA. They kb believe pt is having withdrawal symptoms due to pump being changed out and the line being primed with saline. States it normally takes 24-72 hours for the actual pain medication to reach the body. Recommends dose of morphine to see if symptoms improve. . Historians other than the Patient: EMS: [facility]. Family Member: sister. 15:04 ED course: Pt states his symptoms have resolved after morphine. Pt states he "feels kb like a new man." . 15:28 Differential Diagnosis: cardiac arrhythmia, idiopathic syncope, vasovagal episode, kb opioid withdrawal. Independent interpretation of the following test(s) in the Emergency Department X-Ray: My interpretation is no pneumothorax. Counseling: I had a detailed discussion with the patient and/or guardian regarding the historical points, exam findings, and any diagnostic results supporting the discharge/admit diagnosis, lab results, radiology results, the need for outpatient follow up, a family practitioner, to return to the emergency department if symptoms worsen or persist or if there are any questions or concerns that arise at home. 16:04 Management of patient was discussed with the following: Dr Hamilton, initially recommended kb admission for observation to combat any withdrawal symptoms until pump is working correctly. Pt prefers to go home so I discussed pt''s wishes with him. Dr Hamilton agreed with outpatient treatment, will prescribe PO morphine to use as needed. . 07/06 13:58 Order name: Basic Metabolic Panel; Complete Time: 14:48 kb 07/06 13:58 Order name: CBC with Diff; Complete Time: 14:29 kb 07/06 13:58 Order name: Hepatic Function; Complete Time: 14:48 kb 07/06 13:58 Order name: Magnesium; Complete Time: 14:48 kb 07/06 13:58 Order name: Protime (+inr); Complete Time: 14:37 kb 07/06 13:58 Order name: Ptt, Activated; Complete Time: 14:37 kb 07/06 13:58 Order name: Troponin High Sensitivity; Complete Time: 14:48 kb 07/06 13:58 Order name: Chest Single View XRAY; Complete Time: 15:30 kb 07/06 13:58 Order name: EKG; Complete Time: 13:59 kb 07/06 13:58 Order name: Cardiac monitoring; Complete Time: 14:13 kb 07/06 13:58 Order name: EKG - Nurse/Tech; Complete Time: 14:58 kb 07/06 13:58 Order name: IV Saline Lock; Complete Time: 14:13 kb 07/06 13:58 Order name: Labs collected and sent; Complete Time: 14:33 kb 07/06 13:58 Order name: NPO; Complete Time: 14:13 kb 07/06 13:58 Order name: O2 Per Protocol; Complete Time: 14:13 kb 07/06 13:58 Order name: O2 Sat Monitoring; Complete Time: 14:13 kb EC:56 Rate is 56 beats/min. Rhythm is regular. QRS [place] is Normal. VA interval is normal at kb 184 msec. QRS interval is normal at 96 msec. QT interval is normal at 374 msec. Administered Medications: 14:44 Drug: morphine IVP or IV 2 mg IVP once over 4 mins Route: IVP; Infused Over: 4 mins; bp Site: left antecubital; 16:11 Follow up: Response: No adverse reaction bp 14:53 CANCELLED (Physician Discretion): morphineor iv 2 mg IVP once over 4 mins kb 14:57 Drug: morphine IVP or IV 4 mg IVP once over 4 mins Route: IVP; Infused Over: 4 mins; bp Site: left antecubital; 16:10 Follow up: Response: No adverse reaction bp Disposition Summary: 07/06/25 15:29 Discharge Ordered Notes: Location: Home kb Condition: Stable kb Diagnosis - Opioid dependence with withdrawal kb Followup: kb - With: Emergency Department - When: As needed - Reason: Worsening of condition Followup: kb - With: Private Physician - When: 2 - 3 days - Reason: Recheck today's complaints, Continuance of care, Re-evaluation by your physician Discharge Instructions: - Discharge Summary Sheet kb - Opioid Withdrawal kb - Opioid Withdrawal Treatment kb Forms: - Medication Reconciliation Form kb - Antibiotic Education kb - Prescription Opioid Use kb - Patient Portal Instructions kb - Leadership Thank You Letter kb Signatures: Dispatcher [employer] Loretta Shay, YEHUDA-C YEHUDA-Micheal Meier, RN RN bp Corrections: (The following items were deleted from the chart) 14:53 14:51 morphine IVP or IV 2 mg IVP once over 4 mins ordered. kb kb
[2025-07-06 19:31] VITALS: TEMP 98; O2SAT 100
[2025-07-06 19:34] VITALS: BP 128/87
== END 2025-07-06 16:11 | disposition home or self-care (01) ==
LOC: ER 13:51
DX: F11.23 Opioid dependence with withdrawal (principal); E11.9 Type 2 diabetes mellitus without complications; I10 Essential (primary) hypertension; Z97.8 Presence of other specified devices
CPT/HCPCS: 85025; 80048; 36415; 83735; 85610; 80076; 85730; 84484; 71045; J2270; 93005; 96374; 99284